=== PATIENT | female | born 1935 | race Caucasian/White ===

== ENCOUNTER → 2016-07-13 | Outpatient (CLI) | payer OTHER, BC ==
[~2016-07-13] VITALS: Ht 157.5 cm; Wt 61.2 kg
[~2016-07-13] MED LIST: ACIPHEX 20 MG T20 MG PO; ALEVE220 MG; ALEVE220 MG PO; AMITRIPTYLINE H10 M1 PO; AMITRIPTYLINE H10 M3 PO; ANALGESIC325 MG PO; APAP500 PO; ARNICA120 ML TP; BENICAR HCT 401 EAC1 PO; BENICAR20 MG PO; BENICAR40 MG PO; CAL-MAG-ZINC T1 EACH PO; CELEXA10 MG PO; EQL CALCIUM IN1 EACH PO; FENOFIBRATE160 MG PO; HYDROCHLOROTH12.5 MG PO; HYDROCODON-ACE1 EAC5 PO; HYDROCODON-ACE1 EAC7 PO; HYDROCODONE-AP1 EAC6 PO; LASIX 20 MG TAB20 MG PO; LASIX 40 MG TAB40 M2 PO; LEXAPRO 10 MG T10 M2 PO; LINZESS145 MCG PO; LORTAB 10-3251 EACH PO; MAGOX 400400 MG PO; MELOXICAM7.5 MG PO; MOVANTIK25 MG PO; NISOLDIPINE17 MG PO; PLAVIX 75 MG TA75 MG PO; PREMARIN0.625 MG PO; PRILOSEC 20 MG20 MG PO; PROTONIX40 M1 PO; PROTONIX40 M2 PO; SULAR PO; TOPROL XL100 MG PO; TRICOR145 MG PO; ZANTAC 150MG T150 M1 PO; ZOCOR 20 MG TAB20 M1 PO; ZOCOR20 MG PO
--- NOTE | ~2016-07-13 | HPC ---
[facility] [address] [place] [address] PAIN MANAGEMENT CONSULTATION Name: OLIVIA PARKINSON Room #: REG VICKEYJavier Trujillo#: [id number] Admission: 07/13/16 Attend Phys: Jose Solitario MD Discharge: Date of : 34 Report #: [id number] THIS REPORT FOR: //name// CC: Stef Solitario DATE OF SERVICE: 07/13/2016 REASON FOR VISIT: Followup visit for bilateral hip pain. HISTORY OF PRESENT ILLNESS: I am seeing the patient today in followup for medication management. Pleased to report that she is doing exceptionally well following her hip replacement. Dr. Waggoner has now replaced both of her hips and she has had really good outcomes. She reports that her pain scores are 0 in her hip. She still has some chronic arthritic pain in her left knee and in her low back for which she continues to take medication. Her daily dose is hydrocodone is 2-3 tablets. We have encouraged her to use the lowest effective dose. I am giving her 10 mg tablets. She should break some in half if she does need a full dose. She is on maximum daily dose of 25 morphine milligram equivalents a day. She denies significant side effects. PHYSICAL EXAMINATION: She is upbeat and positive, very enthusiastic about the fact that her surgery has gone so well. Her blood pressure of 169/71, heart rate 71, respirations 14, BMI 24.7. She is walking with a walker, but is able to move easily from sitting to standing position and has a good stable gait. She has minimal tenderness around her hip. She has some pain across her low back and into her left knee. IMPRESSION: 1. Chronic back pain related to spondylosis. 2. Osteoarthritis, left hip, has now much improved following replacement, but she still has some knee pain bilaterally. 3. Coronary artery disease. 4. Hypertension. 5. Management of high risk medications under terms of an opioid agreement. PLAN: Medications were renewed for her for 3 months. Importance of safeguarding medication was stressed to her today and we reviewed the CDC guidelines. I plan to see her back in 3 months. By: [id number] Jose Solitario MD /nt
== END | disposition home or self-care (01) ==
LOC: PAIN 06:53
DX: M47.896 Other spondylosis, lumbar region (principal); G89.29 Other chronic pain; M17.0 Bilateral primary osteoarthritis of knee; M25.561 Pain in right knee; M25.562 Pain in left knee; I10 Essential (primary) hypertension; F11.20 Opioid dependence, uncomplicated; I25.10 Atherosclerotic heart disease of native coronary artery without angina pectoris; Z87.891 Personal history of nicotine dependence; Z96.643 Presence of artificial hip joint, bilateral

== ENCOUNTER → 2016-10-05 | Outpatient (CLI) | payer OTHER, BC ==
[~2016-10-05] VITALS: Ht 157.5 cm; Wt 60.3 kg
--- NOTE | ~2016-10-05 | HPC ---
[facility] [address] [place] [address] PAIN MANAGEMENT CONSULTATION Name: OLIVIA PARKINSON Room #: REG LACHELLE Cassandra#: [id number] Admission: 10/05/16 Attend Phys: Jose Solitario MD Discharge: Date of : 34 Report #: [id number] THIS REPORT FOR: //name// CC: Stef Solitario DATE OF SERVICE: 10/05/2016 Followup visit for chronic low back pain with radiculopathy. The patient returns to pain clinic today for an epidural injection. She is now 7 days off her Plavix. She had previous injections with good response back in November. Pain is now returning to the point where she would like to receive an injection. Pain is in her low back, radiates through her left hip and down into her left leg. She describes it as a constant, burning soreness. Pain intensity is a 5/10 and constant. She gets some relief with sitting and repositioning. MEDICATIONS: Reconciled. She uses hydrocodone for intractable pain and Movantik for the side effect of constipation. She also uses tincture of arnica, magnesium, citalopram, Lasix, simvastatin, Linzess, pantoprazole, metoprolol, estrogens and again, her Plavix was discontinued for 7 days for the shot. PAST MEDICAL HISTORY: Remarkable for previous femoral endarterectomy. She has essential tremor. She has had stents in her legs and has a history of gastroesophageal reflux disease. She had myocardial infarction in 2000 and stents placed in 2000 and 2001. PHYSICAL EXAMINATION: Pleasant, alert and oriented, slight tremor is noted. Blood pressure 127/53, heart rate 75. She walks with mild antalgic feature. She has pain across her low back and limited range of motion. Positive straight leg raising on the right and left is noted, worse on the left, radiating down the L5-S1 distribution. X-rays from the past have demonstrated spinal stenosis at L4-L5 of a moderate degree with left lateral recess narrowing, left paramedian origin at the L5 nerve root. IMPRESSION: Lumbar radiculopathy, L4-L5; stenosis with involvement of the L5 nerve root. PROCEDURE: L4-L5 translaminar epidural injection to the left of midline. The patient was taken to fluoroscopic suite, placed prone, skin prepped with ChloraPrep. Skin anesthetized over the L4-L5 interspace. A 20-gauge Tuohy epidural needle advanced in the epidural space with loss of resistance. No blood or CSF was aspirated. 1 mL of Omnipaque injected and good spread of dye [address] [address] PAIN MANAGEMENT CONSULTATION Name: OLIVIA PARKINSON Room #: REG [facility] Cassandra#: [id number] Admission: 10/05/16 Attend Phys: Jose Solitario MD Discharge: Date of : 34 Report #: [id number] observed in the epidural space. This was followed then by 3 mL of 0.5% lidocaine mixed with 80 mg triamcinolone. She tolerated the procedure well and was observed for 45 minutes and discharged. Follow up as needed. <ELECTRONICALLY SIGNED> By: Jose Solitario MD 10/05/16 1714 1441 1640 Jose Solitario MD /nt
[2016-10-05 14:08] VITALS: BP 127/53
== END ==
LOC: PAIN 07:09
DX: M54.16 Radiculopathy, lumbar region (principal); M48.06 Spinal stenosis, lumbar region; I10 Essential (primary) hypertension; M19.90 Unspecified osteoarthritis, unspecified site; Z87.891 Personal history of nicotine dependence; F10.21 Alcohol dependence, in remission; I25.10 Atherosclerotic heart disease of native coronary artery without angina pectoris; I24.9 Acute ischemic heart disease, unspecified; M16.12 Unilateral primary osteoarthritis, left hip; Z88.8 Allergy status to other drugs, medicaments and biological substances

== ENCOUNTER 2016-11-09 14:27 | Emergency (ER) | payer OTHER, BC ==
[~2016-11-09] VITALS: Ht 157.5 cm; Wt 58.5 kg
[~2016-11-09 14:27] MED LIST changes: -KEFLEX500 MG PO
[2016-11-09 15:12] LABS: ABSOLUTE NEUTROPHILS 5.3 thou/uL (1.4-8.2); BASOPHILS 0.5 % (0.0-2.0); EOSINOPHILS 1.1 % (0.0-3.0); HEMATOCRIT 37.2 % (37.0-47.0); HEMOGLOBIN 12.8 gm/dL (12.0-15.0); LYMPHOCYTES 25.8 % (24.0-44.0); MCH 33.2 pg (26.0-34.0); MCHC 34.5 g/dL (28.0-37.0); MCV 96.3 fL (80.0-100.0); MONOCYTES 8.6 % (1.0-8.0); PLATELET COUNT 285 thou/uL (150-400); RBC 3.86 mil/uL (4.20-5.00); RDW 14.3 % (10.5-14.5); WBC 8.3 thou/uL (4.0-11.0)
[2016-11-09 15:13] LABS: MANUAL DIFF NO
[2016-11-09 15:19] LABS: CREATININE 0.9 mg/dL (0.6-1.0)
[2016-11-09] MEDS ORDERED: KEFLEX500 MG PO (17:40)
[2016-11-09 18:07] VITALS: BP 174/80
== END 2016-11-09 18:26 | disposition home or self-care (01) ==
LOC: ER 14:27
PROVIDERS: Nurse Practitioner
DX: S01.81XA Laceration without foreign body of other part of head, initial encounter (principal); S16.1XXA Strain of muscle, fascia and tendon at neck level, initial encounter; S09.90XA Unspecified injury of head, initial encounter; M25.511 Pain in right shoulder; I10 Essential (primary) hypertension; E78.5 Hyperlipidemia, unspecified; K21.9 Gastro-esophageal reflux disease without esophagitis; J45.909 Unspecified asthma, uncomplicated; F10.99 Alcohol use, unspecified with unspecified alcohol-induced disorder; Z95.5 Presence of coronary angioplasty implant and graft; Z90.711 Acquired absence of uterus with remaining cervical stump; Z86.79 Personal history of other diseases of the circulatory system; Z88.1 Allergy status to other antibiotic agents; Z88.6 Allergy status to analgesic agent; Z87.891 Personal history of nicotine dependence; W18.39XA Other fall on same level, initial encounter; Y93.89 Activity, other specified; Y92.090 Kitchen in other non-institutional residence as the place of occurrence of the external cause; Y99.8 Other external cause status

== ENCOUNTER → 2016-11-09 | Outpatient (CLI) | payer OTHER, BC ==
[~2016-11-09] MED LIST changes: +KEFLEX500 MG PO
== END ==
LOC: HYPER 07:06
DX: S81.801A Unspecified open wound, right lower leg, initial encounter (principal); I10 Essential (primary) hypertension; K21.9 Gastro-esophageal reflux disease without esophagitis; F32.9 Major depressive disorder, single episode, unspecified; I73.9 Peripheral vascular disease, unspecified; Z87.891 Personal history of nicotine dependence; Z72.89 Other problems related to lifestyle; X58.XXXA Exposure to other specified factors, initial encounter; Y93.89 Activity, other specified; Y92.89 Other specified places as the place of occurrence of the external cause; Y99.8 Other external cause status

== ENCOUNTER → 2016-11-23 | Outpatient (CLI) | payer OTHER, BC ==
[~2016-11-23] MED LIST changes: +KEFLEX500 MG PO
== END ==
LOC: HYPER 07:24
DX: S81.801A Unspecified open wound, right lower leg, initial encounter (principal); I10 Essential (primary) hypertension; Z96.643 Presence of artificial hip joint, bilateral; Z87.891 Personal history of nicotine dependence; Z72.89 Other problems related to lifestyle; X58.XXXA Exposure to other specified factors, initial encounter; Y93.89 Activity, other specified; Y92.89 Other specified places as the place of occurrence of the external cause; Y99.8 Other external cause status

== ENCOUNTER → 2016-12-21 | Outpatient (CLI) | payer OTHER, BC ==
[~2016-12-21] VITALS: Ht 157.5 cm; Wt 59.4 kg
--- NOTE | ~2016-12-21 | HPC ---
[facility] [address] [place] [address] PAIN MANAGEMENT CONSULTATION Name: OLIVIA PARKINSON Room #: REG VICKEYJavier Santoro.#: [id number] Admission: 12/21/16 Attend Phys: Jose Solitario MD Discharge: Date of : 34 Report #: [id number] THIS REPORT FOR: //name// CC: DEDRICK Solitario DATE OF SERVICE: 12/21/2016 Followup visit for lumbar radiculopathy. The patient returns to pain clinic today for another epidural injection. I am pleased to report that she is an excellent responder to these injections. Each time she has received an injection, she has reported nearly 70-80% pain relief and the duration of response has also been excellent in the range of 2 months or greater. Some injections have lasted longer. After the injection, she is able to ambulate more effectively. She has less pain in her back and into her left leg. She has radiculopathy. The last injection in September went well; however, about 2 weeks after her injection, her leg was heavily graft due to an open wound, which occurred when she hit her leg. She is on a blood thinner. She caught her foot while walking, trip and fell flat on her face causing significant bruising and swelling around her nose and eyes. This has almost entirely resolved. Fortunately, she fractured no boned and has no pain in her upper body. Over the last week or two, the pain has started return in her back and leg and she is here today off Plavix for 7 days in anticipation of another injection. MEDICATIONS: Plavix, hydrocodone p.r.n., Movantik, ____, citalopram, simvastatin, Lasix, amitriptyline, Linzess, Protonix, metoprolol, estrogens and ____. ALLERGIES: SULFA, TRAMADOL. PAST MEDICAL HISTORY: Remarkable for coronary artery disease with stents, femoral endarterectomy in 2012, essential tremor, hypertension, dyslipidemia, spinal stenosis, COPD, gastroesophageal reflux disease. PHYSICAL EXAMINATION: GENERAL: She is a [place], pleasant, jovial 81-year-old today. VITAL SIGNS: Blood pressure 161/71, heart rate 70, O2 sat is 97%. MUSCULOSKELETAL: She is able to move from sitting to standing position independently. She has tenderness across her low back and positive straight leg raising on the left following an L4-L5 distribution. She has some bruising in her leg. The wound that was on her right leg has completely healed. She has generalized weakness [place] [address] PAIN MANAGEMENT CONSULTATION Name: OLIVIA PARKINSON Room #: REG LACHELLE Trujillo#: [id number] Admission: 12/21/16 Attend Phys: Jose Solitario MD Discharge: Date of : 34 Report #: [id number] IMPRESSION: Low back pain with radiculopathy related to spinal stenosis, L4-L5. RECOMMENDATIONS: Repeat epidural steroid injection under fluoroscopic guidance. PROCEDURE: She was taken to the fluoroscopic suite, placed prone, skin prepped with ChloraPrep, skin anesthetized over the L4-L5 interspace. A 20-gauge Tuohy epidural needle advanced in the epidural space with loss of resistance technique. There was no blood nor CSF aspirated. 1 mL of Omnipaque was injected with excellent spread of dye observed in the epidural space. This was followed by 3 mL of 0.5% lidocaine mixed with 80 mg of triamcinolone. She tolerated the procedure well. She was observed for 45 minutes and discharged. Followup visit planned in the pain clinic on an as needed basis. We do not perform series of injections for this condition. By: 1129 [id number] Jose Solitario MD /nt
[2016-12-21 10:46] VITALS: BP 161/71
== END | disposition home or self-care (01) ==
LOC: PAIN 06:57
DX: M48.06 Spinal stenosis, lumbar region (principal); M54.16 Radiculopathy, lumbar region; G89.29 Other chronic pain; I10 Essential (primary) hypertension; J44.9 Chronic obstructive pulmonary disease, unspecified; I25.10 Atherosclerotic heart disease of native coronary artery without angina pectoris; E78.5 Hyperlipidemia, unspecified; K21.9 Gastro-esophageal reflux disease without esophagitis; Z88.8 Allergy status to other drugs, medicaments and biological substances; Z88.2 Allergy status to sulfonamides; Z98.890 Other specified postprocedural states; Z79.899 Other long term (current) drug therapy; Z95.5 Presence of coronary angioplasty implant and graft; Z87.891 Personal history of nicotine dependence

== ENCOUNTER → 2017-06-20 | Outpatient (CLI) | payer OTHER, BC ==
[~2017-06-20] VITALS: Ht 157.5 cm; Wt 60.9 kg
--- NOTE | ~2017-06-20 | HPC ---
[facility] [address] [place] [address] PAIN MANAGEMENT CONSULTATION Name: OLIVIA PARKINSON Room #: REG LACHELLE Giancarlo.#: [id number] Admission: 06/20/17 Attend Phys: Jose Solitario MD Discharge: Date of : 34 Report #: [id number] THIS REPORT FOR: //name// CC: Chente Moctezuma MD [facility] Stef Solitario DATE OF SERVICE: 06/20/2017 REASON FOR VISIT: Followup visit for management of chronic intractable pain. HISTORY OF PRESENT ILLNESS: The patient presents back to the pain clinic today with her . She is doing well, does not need another epidural injection at this time. She continues to use hydrocodone 10/325 three tablets a day. Some days, a little bit less. This has been very helpful for her pain. She has no significant side effects. She has been able to manage her pain intensity down to the level of 4 with the medication. I have agreed to renew the medication for today on 3-month basis. We reviewed our opioid agreement, the CDC guidelines and then opioid risk in the [place]. She understands that she has responsibilities with these medications. PQRS reveals that she has lower and upper extremity arthritis of the hips, knees and shoulders. Her BMI is 24.5. PHYSICAL EXAMINATION: VITAL SIGNS: Blood pressure 157/76, heart rate 70, respirations 16, O2 sat is 100 on room air. Pain intensity 4/10 today. MUSCULOSKELETAL: She is a fall risk with the use of a cane, required. She has not fallen in the last 3 months. She is on blood thinner and needs to be cautious. She has a history of hypertension, which is followed by her global marketing specialist and primary care physician. Risk assessment tool was performed and she has low risk for any addiction and her functional assessment tool is 41/70, suggesting that she has made good adjustments to her pain with the help of medication. She drinks alcohol on occasion 1-2 beverages a day in a social setting with her . IMPRESSION: 1. Chronic intractable low back pain with radiculopathy. 2. Management of high risk medication under terms of written opioid agreement. [facility] [address] [place] [address] PAIN MANAGEMENT CONSULTATION Name: OLIVIA PARKINSON Room #: REG VICKEYJavier Santoro.#: [id number] Admission: 06/20/17 Attend Phys: Jose Solitario MD Discharge: Date of : 34 Report #: [id number] PLAN: Medications renewed. Her responsibilities to safeguard medication discussed and I plan to see her back in the pain clinic in 3 months. <ELECTRONICALLY SIGNED> By: Jose Solitario MD 06/27/17 1640 1535 2136 Jose Solitario MD /nt
[2017-06-20 14:20] VITALS: BP 157/76
== END ==
LOC: PAIN 06:57
DX: G89.29 Other chronic pain (principal); M54.16 Radiculopathy, lumbar region; F11.90 Opioid use, unspecified, uncomplicated

== ENCOUNTER → 2017-11-19 | Outpatient (CLI) | payer OTHER, BC ==
[~2017-11-19] VITALS: Ht 157.5 cm; Wt 60.9 kg
--- NOTE | ~2017-11-19 | HPC ---
[facility] [address] [place] [address] PAIN MANAGEMENT CONSULTATION Name: OLIVIA PARKINSON Room #: REG LACHELLE Yvan.#: [id number] Admission: 11/19/17 Attend Phys: Jose Solitario MD Discharge: Date of : 34 Report #: [id number] THIS REPORT FOR: //name// CC: Stef Solitario DATE OF SERVICE: 11/19/2017 Followup visit for chronic low back pain with radiculopathy. The patient returns today with her for medication. She continues to do very well, taking 3 hydrocodone a day. She denies side effects. She is grateful for the relief that she gets and she is careful about safeguarding her medications. We have discussed our CDC guidelines. We have discussed her opioid agreement. We have discussed her responsibility in taking care of the medications. PQRS revealed a pleasant, alert and oriented woman. She has multiple bruises from her blood thinner. She is 5 feet 2 inches, 130 pounds, BMI 34.5. Blood pressure is 141/62, heart rate 71, respirations 16. Pain intensity is 6-7/10 with standing and walking. She is not a fall risk. She is on Plavix. History of hypertension. Opioid contract was agreed upon and signed most recently on 07/13/2016. She is at low risk for addiction and her functional assessment tool was a modest 41/70. She denies use of tobacco or alcohol. IMPRESSION: 1. Chronic back pain with radiculopathy. 2. Management of high risk medications under terms of written opioid agreement. PLAN: I renewed her medications and talked to her again about safeguarding medications cautiously. Her medication will be hydrocodone 10/325 taken 3 times a day on schedule. Followup visit planned as needed. <ELECTRONICALLY SIGNED> By: Jose Solitario MD 11/21/17 1622 1230 1252 Jose Solitario MD /nt
[2017-11-19 09:21] VITALS: BP 141/62
== END ==
LOC: PAIN 06:23
DX: M54.16 Radiculopathy, lumbar region (principal); Z79.891 Long term (current) use of opiate analgesic

== ENCOUNTER → 2018-03-11 | Outpatient (CLI) | payer OTHER, BC ==
[~2018-03-11] VITALS: Ht 157.5 cm; Wt 60.8 kg
--- NOTE | ~2018-03-11 | HPC ---
[facility] [address] [place] [address] PAIN MANAGEMENT CONSULTATION Name: OLIVIA PARKINSON Room #: REG Javier Trujillo#: [id number] Admission: 03/11/18 Attend Phys: Ashley Cody Discharge: Date of : 34 Report #: [id number] THIS REPORT FOR: //name// CC: Ashley Lutz MD DATE OF SERVICE: 03/11/2018 CHIEF COMPLAINT: Followup visit today for chronic low back pain with radiculopathy. HISTORY OF PRESENT ILLNESS: The patient returns today for a refill of her medications. She tells me that her pain score is 3/10, which is pretty average. She said that her pain is mostly in her legs. States she has some numbness in her left leg, but does have pain in both legs, worse with activity, walking and bending. The medication does help her significantly. She has a slight cough today and her filled 31 bags of leaves about 2 weeks ago and has had a cough ever since. The patient thinks she just inhaled some dust. The patient does tell me that she had her flu shot at that time, but the patient tells me also that she was able to do that without any significant pain. They did not do that over 1 day, it was over several days and tells me she tries to keep as active as possible. She tells me that her constipation is controlled with Linzess and was controlled with Movantik, but the insurance company is not willing to cover Movantik any longer, so she is using Linzess, but still finds it helpful. She does not have any daytime sleepiness. She does recite her rosary every afternoon and then takes a scheduled nap daily. ALLERGIES: BACTRIM AND TRAMADOL. CURRENT MEDICATIONS: Hydrocodone 10/325 one tablet 2-3 times a day, Mag-Ox 40 mg twice daily, Celexa 10 mg daily, simvastatin 20 mg daily, Lasix 40 mg as needed, Elavil 10 mg daily, Linzess 145 mg at bedtime, Protonix 40 mg daily, Toprol 100 mg daily, Premarin 0.625 daily and Plavix 75 mg at bedtime. The patient's PQRS today: 1. History of osteoarthritis in her right upper and lower extremities. Denies rheumatoid arthritis. 2. The patient is 5 feet 2 inches, weight 134, BMI is 24.5. 3. Vital signs: Blood pressure 158/89, pulse is 87, respirations 16, oxygen sat is 97%. 4. Pain score of 3/10. 5. Denies dizziness. Has not fallen in the last 3 months and does not need help walking or understanding. 6. The patient is on blood thinner. 7. The patient has a history of hypertension. [facility] [address] [place] [address] PAIN MANAGEMENT CONSULTATION Name: OLIVIA PARKINSON Room #: REG CL Cassandra#: [id number] Admission: 03/11/18 Attend Phys: Ashley Cody Discharge: Date of : 34 Report #: [id number] 8. Opioid therapy greater than 6 weeks, and does have opioid signed contract on the chart. 9. She has a low risk assessment and her functional assessment is 41/70. 10. The patient does not use recreational drug use. He is a former smoker and occasionally drinks alcohol. [place] drug monitoring prescriptions were not found. We will try again with the patient's nickname, Natasha. The patient tells me she does safeguard her medications and does use only one pharmacy. PHYSICAL EXAMINATION: This is alert and orientated 82-year-old, appears her stated age, walks with an antalgic gait. Occasionally uses a cane, not one present today, has not fallen. Lower extremities, numbness in her left leg, but strength appear to be equal bilaterally about 4/5 is judged in all muscle groups. IMPRESSION: 1. Chronic back pain with radiculopathy. 2. High risk medicines under the terms of written opioid contract. 3. Hypertension. We reviewed the fact that opiate medications are being used to provide analgesia adequate to support activities of daily living, not attempting to achieve a specific pain score on the 0-10 Visual Analog Scale. The current opiate medications are providing sufficient analgesia to allow the patient to participate in activities of daily living. The patient is not exhibiting any aberrant behavior suggestive of drug diversion. The patient is not having any adverse reactions to medications. The patient is not suffering from daytime somnolence or mental acuity changes. The patient is managing opiate-induced constipation with appropriate [id number] agents and dietary considerations. The patient was counseled on concern for caution with operating a motor vehicle while using opiate medications. A physical exam was performed and the patient's functional status was evaluated. All patients with back pain were advised against the bed rest greater than 4 days and were advised to return to normal activities. Pain score assessment was noted and the treatment plan was reviewed with the patient. All current medications, both prescribed and OTC were reviewed and reconciled on the electronic medical record. Tobacco screening was accomplished and smoking cessation was advised when indicated. BMI was noted and diet/exercise modification was recommended for all patients following outside normal parameters. I reviewed with the patient today their responsibilities to safeguard prescription medications, reviewed their responsibility to utilize medications only as prescribed by the physician. They are to seek and receive pain [facility] [address] [place] [address] PAIN MANAGEMENT CONSULTATION Name: OLIVIA PARKINSON Room #: REG LACHELLE Trujillo#: [id number] Admission: 03/11/18 Attend Phys: Ashley SHANNA Cody Discharge: Date of : 34 Report #: [id number] medications only from 1 physician group ( [facility]). They are to use 1 pharmacy and keep the clinic informed if they change pharmacies. Their responsibilities include making followup visits in a timely fashion and to avoid abrupt discontinuation of medication usage. Their responsibilities further include bringing their medications (bottles from the pharmacy with residual pills) to the visit for possible confirmation of pill counts and the patient understands it is their responsibility to submit to random drug screens to ensure both that the medications prescribed are present, and that no other controlled substances are present. All prescriptions provided today were generated electronically. PLAN: 1. We renewed her medications of hydrocodone 10/325. The patient takes 2-3 times a day, #90 was given with a refill for a week and 8 weeks. 2. The patient reminded to safeguard her medicines. 3. The patient tells me that she did get a flu shot, which I was going to encourage her to get one, but she has had it about 11 days ago. 4. Discussion on constipation and Linzess has been helpful as well as diet. 5. The patient will follow up in 3 months' time for her medications, if not sooner for an epidural with Dr. Jose Solitario. <ELECTRONICALLY SIGNED> By: Ashley Cody 03/12/18 1449 1019 0016 Ashley Cody /nt
[2018-03-11 09:52] VITALS: BP 158/89
== END ==
LOC: PAIN 06:48
DX: M54.16 Radiculopathy, lumbar region (principal); G89.29 Other chronic pain; I10 Essential (primary) hypertension; Z79.891 Long term (current) use of opiate analgesic; Z79.899 Other long term (current) drug therapy

== ENCOUNTER 2018-07-05 05:34 | Inpatient (IN) | payer OTHER, BC ==
[2018-06-24 11:09] LABS: URINE BILIRUBIN NEGATIVE (Negative); URINE BLOOD NEGATIVE (Negative); URINE CLARITY CLEAR; URINE COLOR YELLOW; URINE GLUCOSE-RANDOM* NEGATIVE (Negative); URINE KETONES NEGATIVE (Negative); URINE LEUKOCYTES-REFLEX TRACE (Negative); URINE NITRITE-REFLEX NEGATIVE (Negative); URINE PROTEIN (DIPSTICK) NEGATIVE (Negative); URINE UROBILINOGEN 0.2 E.U./dl (0.2-1.0)
[2018-06-24 11:14] LABS: ABSOLUTE NEUTROPHILS 2.1 thou/uL (1.4-8.2); BASOPHILS 0.9 % (0.0-2.0); EOSINOPHILS 6.7 % (0.0-3.0); HEMATOCRIT 34.9 % (37.0-47.0); HEMOGLOBIN 11.9 gm/dL (12.0-15.0); LYMPHOCYTES 35.9 % (24.0-44.0); MCHC 34.2 g/dL (28.0-37.0); MCV 99.4 fL (80.0-100.0); MONOCYTES 4.4 % (1.0-8.0); PLATELET COUNT 199 thou/uL (150-400); POLYS 52.1 % (36.0-66.0); RBC 3.51 mil/uL (4.20-5.00); RDW 13.2 % (10.5-14.5)
[2018-06-24 11:23] LABS: APTT 25.7 Seconds (24.5-32.8)
[2018-06-24 11:32] LABS: ALBUMIN 3.5 g/dL (3.4-5.0); CALCIUM 8.5 mg/dL (8.5-10.1); CREATININE 0.8 mg/dL (0.6-1.0); POTASSIUM 4.4 mmol/L (3.5-5.1); TOTAL BILIRUBIN 0.3 mg/dL (<0.1-1.0)
--- NOTE | 2018-06-24 15:57 | EKG ---
[place] [address] [facility] [place] [address] ELECTROCARDIOGRAM REPORT Name: COTYOLIVIA MCKINLEY Mojgan Room #: [facility] ..#: [id number] ������������������ Admission: ������������������ Attend Phys: Zak Guillaume MD Discharge: ������������������ Date of : 34 Report #: [id number] ����������������������������������������������������������������� [id number] THIS REPORT FOR: //name// [facility] Test Date: 2018-06-24 Test Time: 10:48:37 Pat Name: OLIVIA PARKINSON Department: Room: Gender: F Mobile Application Architect: Mojgan SHERWOOD : 1935 Requested By: Zak Guillaume Order Number: [id number] : Laureano Bajwa Measurements Intervals [place] Rate: 65 P: 11 MD: 186 QRS: -7 QRSD: 93 T: 27 QT: 433 QTc: 451 Interpretive Statements Sinus rhythm Low voltage, extremity leads Compared to ECG 02/23/2016 03:20:22 No significant changes Electronically Signed On 06-24-2018 15:57:16 TEXTILE CONSERVATOR by Laureano Bajwa [email or web address] ��������������������������������������������� <ELECTRONICALLY SIGNED> ���������������������������������������� By: Laureano Bajwa MD ��������������������������������������������� 06/24/18 1557 1048 47 Laureano Bajwa MD /BRAD
[~2018-07-05] VITALS: Ht 157.5 cm; Wt 59.2 kg
[2018-07-05] VITALS (14 sets, daily range): BP systolic 103–154; BP diastolic 37–58
--- NOTE | ~2018-07-05 | O ---
[facility] [place] [address] OPERATIVE REPORT Name: OLIVIA PARKINSON Room #: 150-8 ADM IN M.R.#: [id number] Admission: 07/05/18 ������������������ Attend Phys: Zak Guillaume MD Discharge: ������������������ Date of : 34 Report #: [id number] THIS REPORT FOR: //name// CC: Zak Lutz DATE OF SERVICE: 07/05/2018 PREOPERATIVE DIAGNOSIS: Right femoral artery stenosis. POSTOPERATIVE DIAGNOSIS: Right femoral artery stenosis. OPERATION: Right femoral endarterectomy with patch closure. SURGEON: Zak Guillaume MD VP ORGANIZATIONAL DEVELOPMENT: CHRISTOPH Lees. ANESTHESIA: General. INDICATIONS: The patient is an 83-year-old with debilitating claudication. The patient has had multiple endovascular procedures, but there was a subtotal occlusion at the proximal superficial femoral artery, right at the profunda takeoff. The remainder of the femoral system on the right side looks angiographically satisfactory. FINDINGS AND TECHNIQUE: After general anesthesia was established, an oblique incision was made in the right groin to expose the common deep and superficial femoral arteries. 10,000 units of heparin were given. The femoral vessels were occluded. An arteriotomy was made. The endarterectomy was performed without creating a distal flap. Neointima was inspected and all loose debris was removed. Tacking sutures were placed at the transition zones into the profunda and into the superficial femoral arteries. When the endarterectomy was deemed satisfactory, the arteriotomy was closed with a thin walled pericardial patch and running Prolene. Prior to finishing the closure, the vessels were backbled and the artery was irrigated with heparinized saline. Flow was reestablished. Protamine was given to reverse the heparin. Hemostasis was ascertained. When hemostasis was satisfactory, the wound was closed in layers. [facility] [address] [facility] [place] [address] OPERATIVE REPORT Name: OLIVIA PARKINSON Room #: 150-8 ADM IN M.R.#: [id number] Admission: 07/05/18 ������������������ Attend Phys: Zak Guillaume MD Discharge: ������������������ Date of : 34 Report #: [id number] dressing was placed and the patient was taken to the recovery area in good condition. All counts were reported as correct. ��������������������������������������������� ���������������������������������������� By: ��������������������������������������������� [id number] /nt
[~2018-07-05 05:34] MED LIST changes: +BIOTIN1000 MCG PO; +LINZESS290 MCG PO; +NORCO 10-325 T1 EACH PO; +SLOW-MAG64 M1 PO; +STOOL SOFTENER100 M1 PO; +ZOCOR 10 MG TAB10 MG PO
[2018-07-05 11:40] LABS: HEMATOCRIT 33.2 % (37.0-47.0); HEMOGLOBIN 11.3 gm/dL (12.0-15.0); MCHC 34.1 g/dL (28.0-37.0); RBC 3.32 mil/uL (4.20-5.00); RDW 13.4 % (10.5-14.5); WBC 7.5 thou/uL (4.0-11.0)
[2018-07-05 11:54] LABS: CALCIUM 8.1 mg/dL (8.5-10.1); CREATININE 0.8 mg/dL (0.6-1.0); POTASSIUM 3.6 mmol/L (3.5-5.1)
--- NOTE | 2018-07-05 19:24 | NUR ---
PT ARRIVED FROM RECOVERY ROOM AT 1200. POST OP RIGHT FEM ENDARECTOMY. GOOD PULSE IN BILAT FEET. PT C/O LEFT FOOT FEELING COLDER THAN RIGHT FOOT NOW. PRN PAIN MEDS GIVEN. PT CAN BECOME ANXIOUS WHEN SHE TALKS TOO MUCH, AND HAS TROUBLE FORMING SENTENCES. TREMORS NOTED. PT WOULD LIKE TO GO HOME TOMORROW. FAMILY HOME FOR THE NIGHT. PLAN TO START HOME MEDS IN THE AM.
[2018-07-06] VITALS (26 sets, daily range): BP systolic 111–151; BP diastolic 42–104
[2018-07-06 04:38] LABS: HEMOGLOBIN 9.9 gm/dL (12.0-15.0); MCH 34.1 pg (26.0-34.0); MCHC 34.3 g/dL (28.0-37.0); MCV 99.6 fL (80.0-100.0); RBC 2.91 mil/uL (4.20-5.00); RDW 13.1 % (10.5-14.5); WBC 5.3 thou/uL (4.0-11.0)
[2018-07-06 04:48] LABS: CALCIUM 7.6 mg/dL (8.5-10.1); CREATININE 0.9 mg/dL (0.6-1.0); POTASSIUM 4.2 mmol/L (3.5-5.1)
--- NOTE | 2018-07-06 05:26 | NUR ---
ASSUMED CARE OF PT AT 1900. PT ALERT AND ORIENTED X4. SR ON THE MONITOR. ON LOW DOSE CARDENE THROUGH OUT THE NIGHT DUE TO PERIODS OF ELEVATED BP. PT TOLERATING WELL. VSS. PT INITIALLY C/O PAIN ON HER RIGHT GROIN R/T SURGERY. PO AND IV MEDS GIVEN WITH GOOD RESULT. PT TOLERATED WELL. GOOD UO. OCHOA CATHETER D/C AT 0400. PT TOLERATING PO FLUID AND DIET. WILL CONTINUE TO MONITOR. PT MAKING PROGRESS TOWARDS GOALS.
--- NOTE | 2018-07-06 17:23 | NUR ---
PT IS ALERT AND ORIENTED X4. ANXIOUS. PAIN MEDS GIVEN FOR DISCOMFORT. UP TO THE CHAIR THIS EVENING WITH ASSISTANCE. LUNGS ARE CLEAR ON ROOM AIR. SINUS RHYTHM ON THE DIVISIONAL HUMAN RESOURCES DIRECTOR. REGULAR DIET. NO ISSUES. UP TO COMMODE TO USE THE BATHROOM WITH ASSISTANCE. ABDOMEN IS SOFT. GOOD PULSES IN FEET BILATERAL. WILL CONTINUE TO ASSESS AND MONITOR PER NURSING AT THIS TIME.
[2018-07-07] VITALS (9 sets, daily range): BP systolic 137–178; BP diastolic 54–80
--- NOTE | 2018-07-07 05:24 | NUR ---
PATIENT IS ALERT AND ORIENTED. PENDING POSSIBLE DISCHARGE TODAY. PATIENTS PAIN IS CONTROLLED WITH ONE HYDROCODON. PATIENT IS ON ROOM AIR AT HOME BUT PATIENT WAS 87% ON ROOM AIR WHILE SLEEPING. PATIENT IS NOW ON 2L NC HS PRN. PATIENT IS UP TIME ONE ASSIST PATIENT CAN GET ANXIOUS. PATIENT HAS BEEN VOIDING PER BSC. PATIENTS MOBILITY HAS IMPROVED. PATIENT IS PROGRESSING TO GOALS. WCM. PATIENT IS PROGRESSING TO GOALS
--- NOTE | 2018-07-07 11:37 | NUR ---
PT IS GIVEN DISCHARGE INSTRUCTIONS VERBALIZES UNDERSTANDING. DR. BURKS SEEN PT PRIOR TO DISCHARGE. TAKEN OUT VIA WHEEL CHAIR. SPOUSE WITH PT AND DAUGHTER WITH PT FOR SUPPORT. NO ISSUES OR CONCERNS NOTED.
--- NOTE | 2018-07-08 17:07 | PATH ---
[facility] [address] [place] [address] PATHOLOGY RPT PROCEDURE Name: DENITA PARKINSON Mojgan Room #: 244-P [facility] IN M.R.#: [id number] ������������������ Admission: 07/05/18 ������������������ Date of : 34 Discharge: 07/07/18 Report #: [id number] Path Case #: [id number] [facility] Accession Number: [id number] . 01 Material submitted: . RIGHT FEMORAL PLAQUE . 01 Clinical history: . PVD . 02 Diagnosis: Right femoral plaque, endarterectomy: - Fragments of calcific sclerosis, compatible with plaque material. 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 (IUV/db; 07/08/2018) LBQ/07/08/2018 . 02 Electronically signed: . Simin Fuentes MD, Pathologist NPI- [id number] . 01 Gross description: . The specimen is received in formalin, labeled "Denita Parkinson, right femoral plaque", is a previously opened, cylindrical segment and its fragments measuring 2.4 x 1.5 x 0.8 cm in aggregate. The segment is filled with gill-white calcified material. Rear Admiral tissue is submitted in A1 after decalcification. ([facility]; 07/05/2018) SHS/SHS . 02 Pathologist provided ICD-10: I70.201 . 02 CPT . 081415, 971464 Specimen Comment: A courtesy copy of this report has been sent to Specimen Comment: [phone], . Specimen Comment: Report sent to and Performed at: [address], [place] [id number] MD Braulio Joshua MD Phone: [phone] Performed at: [address] [id number] MD Simin Fuentes MD Phone: [phone]
== END 2018-07-07 11:37 | disposition home or self-care (01) | DRG 254 ==
LOC: PRE 05:34 → TBA 05:34 → ICU 12:33 → PRE 14:17 → ICU 07-07 05:54
PROVIDERS: Physician Assistant; ADMIT Surgery Vascular Surgery
PROC: 04CK0ZZ Extirpation of Matter from Right Femoral Artery, Open Approach (ICD-10-PCS; principal; 2018-07-05)
PROC: 04UK0KZ Supplement Right Femoral Artery with Nonautologous Tissue Substitute, Open Approach (ICD-10-PCS; principal; 2018-07-05)
DX: I70.211 Atherosclerosis of native arteries of extremities with intermittent claudication, right leg (principal); Z96.642 Presence of left artificial hip joint; Z90.710 Acquired absence of both cervix and uterus; Z88.1 Allergy status to other antibiotic agents; Z88.2 Allergy status to sulfonamides; Z88.8 Allergy status to other drugs, medicaments and biological substances
CPT/HCPCS: 10203; 47375; 48888; 50010; 50101; 50386; 50455; 50953; 51751; 52279; 56524; 56526; 56528; 56531; 56534; 56668; 56760; 57092; 57093; 62110; 62900; 65020; 65040; 70005

== ENCOUNTER → 2018-07-17 | Outpatient (CLI) | payer OTHER, BC ==
[~2018-07-17] VITALS: Ht 157.5 cm; Wt 59.9 kg
[~2018-07-17] MED LIST changes: +NORCO 10-325 T1 EAC1 PO
[2018-07-17 10:22] VITALS: BP 163/88
--- NOTE | 2018-07-17 10:23 | NUR ---
Pain Clinic Assessment: 1. History of Osteoarthritis: Left Lower Extremity Left Upper Extremity Right Lower Extremity Right Upper Extremity History of Rheumatoid Arthritis: Not Applicable 2. Height: 5 ft. 2 in. 157.5 cm. Weight: 132.0 lb. oz. 59.875 kg. Patient's BMI: 24.1 3. Vital Signs: BP: 163/88 Pulse: 66 Resp: 15 Temp: 02 Sat: 100 ECG Mon: 4. Pain Intensity: 4 5. Fall Risk: Dizziness: N Needs help standing or walking: N Fallen in the last 3 months: N Fall risk comments: 6. Patient on Blood Thinner: Clopidogrel Bisulf(Plavix 7. History of Hypertension: Y 8. Opioid Therapy greater than 6 weeks: Y Opiate Contract Signed: 07/13/16 9. Risk Assessment Tool Provided: LOW RISK 0/3 10. Functional Assessment Tool: 41 11. Recreational Drug Use: Never Drug Type: Tobacco Use: Former Smoker Tobacco Type: Amount or Packs/day: How Many Years: Alcohol Use: Yes Frequency: Daily Quant:
--- NOTE | 2018-07-18 07:49 | HPC ---
[facility] [address] [place] [address] PAIN MANAGEMENT CONSULTATION Name: OLIVIA PARKINSON Room #: REG LACHELLE Truj[place]#: [id number] Admission: 07/17/18 ������������������ Attend Phys: Ashley Cody Discharge: ������������������ Date of : 34 Report #: [id number] THIS REPORT FOR: //name// CC: Ashley Lutz MD DATE OF SERVICE: 07/17/2018 CHIEF COMPLAINT: Chronic low back pain with radiculopathy. HISTORY OF PRESENT ILLNESS: The patient returns to the pain clinic today for refill of her medications. She tells me that she recently had a surgery about 2 weeks ago of the right femoral endarterectomy with patch closure. The patient tells me that her right leg along the inner aspect of her thigh has been burning and sharp at times. She believes that this will slowly get better. This was told to her by the surgeon that it will gradually get better it is still bothersome. She tells me she is taking 3 of her hydrocodone a day and finds it very helpful. She also has some complaints of back pain. Today, her pain score is 4/10, worse with walking, better with sitting and her medications. She did tell me that as she walked in here today from the parking lot, she did have to sit down to help relieve her pain. She would like a refill of her medications. She also tells me that she is having significant constipation. She is off the Linzess because it was causing some spasms and she is not able to get her Movantik anymore that was helpful in the past, but has not been helping as much as it used to. So, the patient has been taking Colace every day, but having significant constipation issues. ALLERGIES: BACTRIM, TRAMADOL. CURRENT LIST OF MEDICATIONS: Plavix 75 mg daily, hydrocodone 10/325, Zocor 10 mg at bedtime, stool softener b.i.d., Biotin 1000 mcg daily, magnesium b.i.d., Celexa 10 mg daily, Lasix 40 mg daily, amitriptyline 10 mg at bedtime, Protonix 40 mg daily, Toprol-XL 100 mg daily, nisoldipine 17 mg at bedtime and Premarin 0.625 mg at bedtime. PQRS: 1. She has osteoarthritis in her upper and lower extremities and denies rheumatoid arthritis. 2. The patient is 5 feet 2 inches, weight is 132, BMI is 24.1. 3. Vital signs: Blood pressure 163/88, pulse is 66, respirations 15, oxygen sat is 100. 4. Pain score 4/10. 5. Fall risk: Denies dizziness. Does not need help walking or standing. Has not fallen in the last 3 months. 6. The patient is on blood thinner on Plavix and does take medicines for [address] [address] PAIN MANAGEMENT CONSULTATION Name: OLIVIA PARKINSON Room #: REG [facility] Cassandra#: [id number] Admission: 07/17/18 ������������������ Attend Phys: Ashley Cody Discharge: ������������������ Date of : 34 Report #: [id number] hypertension. 7. Opiate therapy is greater than 6 weeks; therefore, an opioid signed contract is on the chart. 8. Risk assessment tool is low. Her functional assessment is 41/70. 9. Recreational drug use: She denies. She is a former smoker and occasionally drinks alcohol. We did check the prescription monitoring system. The patient is filling appropriately with her medications. She tells me that she does safeguard her medicines at all times. PHYSICAL EXAMINATION: GENERAL: This is an alert and orientated 83-year-old that appears her stated age. HEENT: Normocephalic, atraumatic. Extraocular eye muscles are intact. MUSCULOSKELETAL: The patient walks with a slightly antalgic gait. She complains of right leg burning in her anterior thigh today from her recent procedure as well as complaining of lower extremity pain when she is walking. Strength in her lower extremities bilaterally is judged to be 4/5 in all major muscle groups. The patient walks with a slightly antalgic gait and occasionally uses a cane though not using one today presently. IMPRESSION: 1. Chronic back pain with radiculopathy. 2. High risk medication under terms of written opioid agreement. 3. Opioid-induced constipation. 4. Hypertension. We reviewed the fact that opiate medications are being used to provide analgesia adequate to support activities of daily living, not attempting to achieve a specific pain score on the 0-10 Visual Analog Scale. The current opiate medications are providing sufficient analgesia to allow the patient to participate in activities of daily living. The patient is not exhibiting any aberrant behavior suggestive of drug diversion. The patient is not having any adverse reactions to medications. The patient is not suffering from daytime somnolence or mental acuity changes. The patient is managing opiate-induced constipation with appropriate [id number] agents and dietary considerations. The patient was counseled on concern for caution with operating a motor vehicle while using opiate medications. A physical exam was performed and the patient's functional status was evaluated. All patients with back pain were advised against the bed rest greater than 4 days and were advised to return to normal activities. Pain score assessment was noted and the treatment plan was reviewed with the patient. All current medications, both prescribed and OTC were reviewed and reconciled on the electronic medical record. Tobacco screening was accomplished and smoking cessation was advised when indicated. BMI was noted and diet/exercise modification was recommended for all patients following outside normal [facility] [address] [place] [address] PAIN MANAGEMENT CONSULTATION Name: OLIVIA PARKINSON Room #: REG [facility].#: [id number] Admission: 07/17/18 ������������������ Attend Phys: Ashley Cody Discharge: ������������������ Date of : 34 Report #: [id number] parameters. I reviewed with the patient today their responsibilities to safeguard prescription medications, reviewed their responsibility to utilize medications only as prescribed by the physician. They are to seek and receive pain medications only from 1 physician group ( [facility]). They are to use 1 pharmacy and keep the clinic informed if they change pharmacies. Their responsibilities include making followup visits in a timely fashion and to avoid abrupt discontinuation of medication usage. Their responsibilities further include bringing their medications (bottles from the pharmacy with residual pills) to the visit for possible confirmation of pill counts and the patient understands it is their responsibility to submit to random drug screens to ensure both that the medications prescribed are present, and that no other controlled substances are present. All prescriptions provided today were generated electronically. PLAN: 1. We discussed treatment options with the patient today. The patient tells me that she is having some burning pain associated with her surgery and it is located in her anterior right thigh. She believes this will get better over time. Dr. Vail did see the patient and reinforced this too. It has only been 2 weeks since her surgery. If it does not get better in the next couple of weeks, she will contact her surgeon about this ongoing burning pain. 2. The patient tells me she has been taking three pain pills a day and would like a refill. Scripts given for her hydrocodone 10/325, #90 for today and in 4-week and 8-week release. 3. The patient complains of severe constipation. She in the past has taken Linzess, but was having spasms related to that and unable to continue that medicine. She had taken Movantik in the past, but it is not as helpful in relieving her constipation anymore. She takes Colace on a daily basis. I questioned if she had taken MiraLax. The patient had not tried this medicine. I encouraged her to try that once a day every day and we have provided her with samples of Symproic tablets to try if the Movantik is not helpful. If the MiraLax is ineffective in controlling her opioid-induced constipation, then she can start the Symproic as well and we will call in a prescription for that medicine. The patient verbalizes understanding to help relieve her constipation. 4. The patient will follow up in 3 months' time for medication management. 5. The patient was seen with Dr. Vail who collaborated care today. ��������������������������������������������� <ELECTRONICALLY SIGNED> ���������������������������������������� By: Ashley Cody ��������������������������������������������� 07/18/18 0749 1102 20 Ashley Cody /rocco
== END ==
LOC: PAIN 07:08
DX: M54.16 Radiculopathy, lumbar region (principal); G89.29 Other chronic pain; I10 Essential (primary) hypertension; K59.03 Drug induced constipation; Z88.8 Allergy status to other drugs, medicaments and biological substances; Z79.899 Other long term (current) drug therapy

== ENCOUNTER → 2018-09-05 | Outpatient (CLI) | payer OTHER, BC ==
[~2018-09-05] VITALS: Ht 157.5 cm; Wt 59.4 kg
[~2018-09-05] MED LIST changes: +MIRALAX17 GM PO
--- NOTE | 2018-09-06 16:06 | PATH ---
[facility] [address] [place] [address] PATHOLOGY RPT PROCEDURE Name: DENITA PARKINSON Room #: REG [facility] Yvan.#: [id number] ������������������ Admission: 09/05/18 ������������������ Date of : 34 Discharge: Report #: [id number] Path Case #: [id number] [facility] Accession Number: [id number] . 01 Material submitted: . colon - POLYP AT 60CM . 01 Clinical history: . Pre-OP DX: Rectal bleeding Post-OP DX: Colon polyp, diverticulosis, hemorrhoids . 02 Diagnosis: Polyp, at 60 cm, endoscopic biopsy: - Tubular adenoma. - Negative for high grade dysplasia. (IUV/db; 09/06/2018) LBQ/09/06/2018 . 02 Electronically signed: . Simin Fuentes MD, Pathologist NPI- [id number] . 01 Gross description: . Received in formalin labeled "Denita Parkinson, polyp at 60 cm," are 4 segments of valero soft tissue measuring 1.1 x 1.0 x 0.2 cm in aggregate dimensions and ranging from 0.3 to 0.5 cm in maximum dimension. The specimen is submitted entirely in cassette A1. ([facility]; 09/05/2018) TOB/TOB . 02 Pathologist provided ICD-10: D12.6 . 02 CPT . 608324 Specimen Comment: A courtesy copy of this report has been sent to Specimen Comment: [phone], . Specimen Comment: Report sent to / DR TAFOYA Performed at: [address], [place] [id number] MD Braulio Joshua MD Phone: [phone] Performed at: [address] [id number] MD Simin Fuentes MD Phone: [phone]
--- NOTE | 2018-09-07 10:54 | P ---
[facility] [place] [address] PROCEDURE REPORT Name: OLIVIA PARKINSON [id number] Admission: 09/05/18 ������������������ Attend Phys: Zak Bunn MD Discharge: ������������������ Date of : 34 Report #: [id number] THIS REPORT FOR: //name// CC: Zak Lutz MD DATE OF SERVICE: 09/05/2018 OUTPATIENT FLEXIBLE SIGMOIDOSCOPY BRIEF HISTORY: The patient is an 83-year-old woman with rectal bleeding. This patient was advised in 2013 to have a colonoscopy for screening purposes; however, she declined to have a colonoscopy. She recently has had problems with rectal bleeding. She presents for flexible sigmoidoscopy for evaluation of rectal bleeding. Interestingly, she did tell me this morning that if we can go all the way to the cecum, she will be okay with that; however, she did not take a full colonoscopy prep. PREOPERATIVE DIAGNOSIS: Rectal bleeding. POSTOPERATIVE DIAGNOSES: 1. A 4-5 mm flat polyp at 60 cm. 2. Moderate sigmoid diverticulosis coli. 3. Small internal hemorrhoids. MEDICATIONS: Deep sedation with propofol per anesthesia. SPECIMEN: Polyp from 60 cm. ESTIMATED BLOOD LOSS: 3 mL. PROCEDURE: Colonoscopy to cecum and terminal ileum with snare polypectomy. FINDINGS: Prior to propofol sedation, the procedure of colonoscopy was discussed with the patient as well as potential risks and its complications. She indicates she understands and desires to proceed. DESCRIPTION OF PROCEDURE: With the patient in left lateral decubitus position, digital examination was completed, which revealed only small internal hemorrhoids. Subsequently, the Olympus video colonoscope was introduced in the rectum, advanced under direct vision to about the level of the splenic flexure. The prep was somewhat limited. There were pools of liquidy stool material. The prep was inadequate for us to advance further into the proximal colon. At that point, the scope was slowly withdrawn and careful circumferential views obtained. The prep was fair. The mucosa seen was within normal limits, normal [facility] [address] [place] [address] PROCEDURE REPORT Name: OLIVIA PARKINSON Mojgan [facility] [id number] Admission: 09/05/18 ������������������ Attend Phys: Zak Bunn MD Discharge: ������������������ Date of : 34 Report #: [id number] vascular pattern, normal light reflex. At 60 cm, a 5-6 mm sessile polypoid lesion was seen. It was removed by cold snare polypectomy and edges were cleaned up with biopsy forceps. Scope was further withdrawn and no additional neoplastic lesions were seen; however, there were pools of liquid material and complete views could not be obtained. The scope was withdrawn. Again, she was noted to have sigmoid diverticular disease. Scope was withdrawn in the rectum, no abnormalities were seen. The prep in the rectum was fairly good. Upon retroflexion, small hemorrhoids were seen. It was felt this is most likely side of her intermittent bright red rectal bleeding. Active bleeding was not seen today. Scope was withdrawn. The patient tolerated the procedure well. CONDITION OF THE PATIENT UPON DISCHARGE: Following procedure, the patient was drowsy and conversant. She will be discharged home when fully ambulatory. INSTRUCTIONS TO THE PATIENT AND FAMILY: Advised the patient to follow a high fiber diet due to her diverticular disease. She has had problems with constipation and notes that she typically sees bright red blood with passage of hard stools. This certainly may represent hemorrhoidal bleeding; however, she was found to have the polyp as described. This appears to be a small adenoma. The prep was inadequate for complete visualization of the colon. There were limitations of the prep with the sigmoidoscopy. We will discuss further with the patient. At age 83, it would be reasonable to complete a screening colonoscopy, especially now since a presumably neoplastic lesion has been found. Suggest she continue MiraLax for her chronic constipation. Also, suggest she consider a full colonoscopy at a later date. She will follow up with Dr. Stef Lutz. If she desires complete colonoscopy, she should contact our office for scheduling. ��������������������������������������������� <ELECTRONICALLY SIGNED> ���������������������������������������� By: Zak Bunn MD ��������������������������������������������� 09/07/18 1054 0914 [id number] Zak Bunn MD /nt
== END | disposition home or self-care (01) ==
LOC: GI 06:59
DX: D12.4 Benign neoplasm of descending colon (principal); K57.30 Diverticulosis of large intestine without perforation or abscess without bleeding; K64.8 Other hemorrhoids; K21.9 Gastro-esophageal reflux disease without esophagitis; I10 Essential (primary) hypertension; I25.10 Atherosclerotic heart disease of native coronary artery without angina pectoris; I25.2 Old myocardial infarction; I73.9 Peripheral vascular disease, unspecified; E78.5 Hyperlipidemia, unspecified; F41.9 Anxiety disorder, unspecified; Z95.5 Presence of coronary angioplasty implant and graft; Z87.891 Personal history of nicotine dependence; Z90.711 Acquired absence of uterus with remaining cervical stump; Z87.19 Personal history of other diseases of the digestive system; Z98.890 Other specified postprocedural states; Z79.899 Other long term (current) drug therapy; Z98.41 Cataract extraction status, right eye; Z98.42 Cataract extraction status, left eye; Z96.641 Presence of right artificial hip joint; Z88.2 Allergy status to sulfonamides; Z88.8 Allergy status to other drugs, medicaments and biological substances
CPT/HCPCS: 62110; 62900

== ENCOUNTER → 2018-11-28 | Outpatient (CLI) | payer OTHER, BC ==
[~2018-11-28] VITALS: Ht 157.5 cm; Wt 58.5 kg
[~2018-11-28] MED LIST changes: +LEVSIN0.125 MG PO
--- NOTE | 2018-11-28 11:20 | P ---
[facility] [place] [address] PROCEDURE REPORT Name: OLIVIA PARKINSON [id number] Admission: 11/28/18 ������������������ Attend Phys: Zak Bunn MD Discharge: ������������������ Date of : 34 Report #: [id number] THIS REPORT FOR: //name// CC: Zak Lutz MD OUTPATIENT COLONOSCOPY REPORT BRIEF HISTORY: The patient is an 83-year-old woman who recently had rectal bleeding. She did not want a colonoscopy and a flexible sigmoidoscopy was done. The source of bleeding was not found and the bleeding has resolved. However, she was found to have an adenoma. She was advised to have colonoscopy due to finding of an adenoma on a flexible sigmoidoscopy. PREOPERATIVE DIAGNOSIS: History of colon polyps. POSTOPERATIVE DIAGNOSES: 1. Multiple colon polyps. 2. Rectal polyp. 3. Moderate sigmoid diverticulosis coli. MEDICATIONS: Deep sedation with propofol per anesthesia. SPECIMENS: 1. Diminutive polyps x 2 proximal transverse colon. 2. Polyp at 60 cm. 3. Polyp at 40 cm. 4. Polyp rectum. ESTIMATED BLOOD LOSS: 3 mL. PROCEDURE: Colonoscopy to cecum and terminal ileum with snare polypectomy and biopsy. FINDINGS: Prior to propofol sedation, procedure of colonoscopy discussed with the patient as well as potential risks and its complications. She indicates she understands and desires to proceed. DESCRIPTION OF PROCEDURE: With the patient in left lateral decubitus position, digital examination was completed, which revealed no abnormalities. Subsequently, the [employer] video colonoscope was introduced in the rectum, advanced under direct vision to the cecum. Done with minimal difficulty. The cecum was identified by the ileocecal valve and the appendiceal orifice. I was able to visualize the distal segment of the terminal ileum, which was inspected and noted to be unremarkable. At that point, the scope was slowly withdrawn and careful circumferential views were obtained. Upon slow withdrawal of the scope, [facility] [address] [place] [address] PROCEDURE REPORT Name: OLIVIA PARKINSON Room #: REG [facility].#: [id number] Admission: 11/28/18 ������������������ Attend Phys: Zak Bunn MD Discharge: ������������������ Date of : 34 Report #: [id number] the prep was good. The mucosa was within normal limits, normal vascular pattern, normal light reflex. As we withdrew the scope, 2 diminutive polyps were seen at the level of the hepatic flexure, removed with biopsy forceps. Upon further withdrawal of the scope, she was found to have a flat polyp about 5 x 5 mm in the descending colon at 60 cm. It was removed by cold snare polypectomy. Another diminutive polyp was found and removed with biopsy forceps from the sigmoid colon at 40 cm. In addition, she was noted to have moderately severe diverticular disease without endoscopic evidence of diverticulitis. Scope was withdrawn in the rectum and another diminutive adenomatous-appearing polyp was seen and removed with biopsy forceps. Scope was further withdrawn and no additional abnormalities were seen. Upon retroflexion, no abnormalities were seen. Scope was withdrawn. The patient tolerated the procedure well. CONDITION OF THE PATIENT UPON DISCHARGE: Following procedure, the patient drowsy, aroused, conversant and will be discharged home when fully ambulatory. INSTRUCTIONS TO THE PATIENT AND FAMILY AT THE TIME OF DISCHARGE: Multiple polyps identified and removed as described above. We will follow up on the path. However, at this point in life, there is not likely to be significant benefit from continued routine colonoscopy. However, should she develop specific problems, colonoscopy could be considered at that time. In addition, the patient has had some trouble with constipation. She has been on hydrocodone chronically. In recent weeks, she had problems with diarrhea. However, she tells me today, the diarrhea has resolved, and she is not having issues with constipation. She should use MiraLax on an as needed basis if she should develop further problems with constipation. There is no evidence of obstruction on today's exam. ��������������������������������������������� <ELECTRONICALLY SIGNED> ���������������������������������������� By: Zak Bunn MD ��������������������������������������������� 11/28/18 1120 [id number] 0959 Zak Bunn MD /nt
--- NOTE | 2018-11-29 14:06 | PATH ---
[facility] [place] [address] PATHOLOGY RPT PROCEDURE Name: DENITA PARKINSON Room #: REG [facility]..#: [id number] ������������������ Admission: 11/28/18 ������������������ Date of : 34 Discharge: Report #: [id number] Path Case #: [id number] Accession Number: [id number] . 01 Material submitted: . PART A: colon - POLYP X2 AT PROX TRANSVERSE. Modifiers: proximal, transverse PART B: colon - POLYP AT 60CM PART C: colon - POLYP AT 40CM PART D: rectum - RECTAL POLYP . 01 Clinical history: . Pre-OP DX: Hx of abdominal pain Post-OP DX: Colon polyps, diverticulosis . 02 Diagnosis: A. Polyp x2, at proximal transverse, endoscopic biopsy: - Multiple fragments with tubular adenoma. - Negative for high grade dysplasia. . B. Polyp, 60 cm, endoscopic biopsy: - Tubular adenoma. - Negative for high grade dysplasia. . C. Polyp, at 40 cm, endoscopic biopsy: - Tubular adenoma. - Negative for high grade dysplasia. . D. Polyp, rectum, endoscopic biopsy: - Hyperplastic polyp. - Negative for dysplasia. . (IUV:mml; 11/29/2018) QLM/11/29/2018 . 02 Electronically signed: . Simin Fuentes MD, Pathologist NPI- [id number] . 01 Gross description: . A. Received in formalin labeled "Denita Parkinson, BX of polyps at proximal transverse," and additionally labeled on the requisition as "polyp, x2," are 6 segments of valero soft tissue measuring 1.3 x 1.1 x 0.2 cm in aggregate dimensions and ranging from 0.1 to 0.3 cm in maximum dimension. The specimen is submitted entirely in cassette A1. . B. Received in formalin labeled "Denita Parkinson, polyp at 60 cm," [place] [address] PATHOLOGY RPT PROCEDURE Name: TESHADENITA L Room #: REG [facility]#: [id number] ������������������ Admission: 11/28/18 ������������������ Date of : 34 Discharge: Report #: [id number] Path Case #: [id number] 0.8 x 0.4 x 0.4 cm polypoid piece of valero soft tissue. The margin is inked and the tissue is sectioned perpendicular to the margin and submitted entirely in cassette B1. . C. Received in formalin labeled "Denita Parkinson, BX of polyp at 40 cm," are 3 segments of valero soft tissue measuring 1.0 x 0.4 x 0.2 x 0.1 cm in aggregate dimensions and ranging from 0.2 to 0.4 cm in maximum dimension. The specimen is submitted entirely in cassette C1. . D. Received in formalin labeled "Denita Parkinson, BX rectal polyp," is a single segment of valero soft tissue measuring 0.4 cm in maximum dimension. The specimen is entirely submitted in cassette D1. (TSD; 11/28/2018) TOB/TOB . 02 Pathologist provided ICD-10: D12.3, D12.6, K62.1 . 02 CPT . 619965, 303538, 958127, 617600 Specimen Comment: A courtesy copy of this report has been sent to Specimen Comment: [phone], . Specimen Comment: Report sent to and Performed at: [address], [place] [id number] MD Braulio Joshua MD Phone: [phone] Performed at: [address] [id number] MD Simin Fuentes MD Phone: [phone]
== END | disposition home or self-care (01) ==
LOC: GI 07:15
DX: D12.3 Benign neoplasm of transverse colon (principal); D12.4 Benign neoplasm of descending colon; D12.5 Benign neoplasm of sigmoid colon; K62.1 Rectal polyp; K57.30 Diverticulosis of large intestine without perforation or abscess without bleeding; K21.9 Gastro-esophageal reflux disease without esophagitis; I10 Essential (primary) hypertension; I25.10 Atherosclerotic heart disease of native coronary artery without angina pectoris; I25.2 Old myocardial infarction; I73.9 Peripheral vascular disease, unspecified; F41.9 Anxiety disorder, unspecified; F32.9 Major depressive disorder, single episode, unspecified; E78.5 Hyperlipidemia, unspecified; Z86.010 Personal history of colon polyps; Z98.890 Other specified postprocedural states; Z86.2 Personal history of diseases of the blood and blood-forming organs and certain disorders involving the immune mechanism; Z87.19 Personal history of other diseases of the digestive system; Z96.641 Presence of right artificial hip joint; Z79.891 Long term (current) use of opiate analgesic; Z90.711 Acquired absence of uterus with remaining cervical stump; Z98.41 Cataract extraction status, right eye; Z98.42 Cataract extraction status, left eye; Z87.891 Personal history of nicotine dependence; Z88.2 Allergy status to sulfonamides; Z88.8 Allergy status to other drugs, medicaments and biological substances; Z79.899 Other long term (current) drug therapy
CPT/HCPCS: 62110; 62900

== ENCOUNTER → 2018-12-02 | Outpatient (CLI) | payer OTHER, BC ==
[~2018-12-02] VITALS: Ht 152.4 cm; Wt 61.0 kg
--- NOTE | ~2018-12-02 | HPC ---
[facility] [place] [address] PAIN MANAGEMENT CONSULTATION Name: OLIVIA PARKINSON Room #: REG [facility]#: [id number] Admission: 12/02/18 ������������������ Attend Phys: Jose Sloitario MD Discharge: ������������������ Date of : 34 Report #: [id number] THIS REPORT FOR: //name// CC: Stef Solitario DATE OF SERVICE: 12/02/2018 Followup visit for chronic low back pain with radiculopathy. The patient is in the pain clinic today describing pain across her low back that radiates into her legs. She has previously been treated with an epidural injection receiving good relief. She would like to repeat the injection today. Her last injection was performed several months ago. She reports that after the injection, she is able to move more easily. The pain intensity drops dramatically. Today, pain score is 7-8/10. She describes it as radiating through the calves bilaterally, right and left, worse on the right. PQRS REVIEW IS COMPLETED: 1. She does have a history of osteoarthritis involving upper and lower extremities. 2. She is 5 feet 2 inches, 132 pounds, BMI is 24.1. 3. Blood pressure 144/62, heart rate 70, BMI 26.2. 4. Pain score today is 7-8/10. 5. She is a fall risk. She walks with unstable gait. She has multiple bruises. 6. Her bruises are due to Plavix, which she takes normally, but has been off in anticipation of an epidural injection today. Her last Plavix has taken 10 days ago. 7. She is on an opioid agreement and we provide medications for her under terms of written opioid agreement. 8. She has completed an opioid risk tool and is at low risk for addiction. 9. She denies use of tobacco, although she is a former smoker. She drinks alcohol occasionally with her in a social setting but reduced it. PHYSICAL EXAMINATION: VITAL SIGNS: As noted above. She is a very delightful 83-year-old pleasant, alert and oriented. She moves independently from sitting to standing position, but walks with antalgic unstable gait. HEART: Her chest is clear. She has some grade 3/6 systolic flow murmur. MUSCULOSKELETAL: She has tenderness across her low back, pain. Straight leg raising reproduces pain in the calf. She has bruising bilaterally throughout the lower extremities from her previous Plavix use. The bruises are tender. Sensation is normal. Muscle strength is judged to be 4/5 in all muscle groups. [address] [address] PAIN MANAGEMENT CONSULTATION Name: OLIVIA PARKINSON Room #: REG [facility]#: [id number] Admission: 12/02/18 ������������������ Attend Phys: Jose Solitario MD Discharge: ������������������ Date of : 34 Report #: [id number] IMPRESSION: 1. Chronic low back pain with radiculopathy. PROCEDURE: Lumbar epidural steroid injection L4-L5 under fluoroscopic guidance. After informed consent, she was taken to fluoroscopic suite, placed prone, skin prepped with ChloraPrep. Skin anesthetized over L4-L5. Using biplanar fluoroscopic views, I advanced the needle into the epidural space with loss of resistance. There was no blood or CSF aspirated. A 1 mL of Omnipaque injected. Good spread of dye observed in the epidural space followed by 3 mL of 0.5% lidocaine mixed with 60 mg of triamcinolone. She tolerated the procedure well and was observed for 45 minutes and discharged. Followup visit planned as needed. ��������������������������������������������� ���������������������������������������� By: ��������������������������������������������� 1340 [id number] Jose Solitario MD /nt
[2018-12-02 12:57] VITALS: BP 144/62
--- NOTE | 2018-12-02 13:15 | NUR ---
Pain Clinic Assessment: 1. History of Osteoarthritis: Left Lower Extremity Left Upper Extremity Right Lower Extremity Right Upper Extremity History of Rheumatoid Arthritis: Not Applicable 2. Height: 5 ft. 0 in. 152.4 cm. Weight: 134.4 lb. oz. 60.963 kg. Patient's BMI: 26.2 3. Vital Signs: BP: 144/62 Pulse: 70 Resp: 14 Temp: 02 Sat: 97 ECG Mon: 4. Pain Intensity: 7-8 5. Fall Risk: Dizziness: N Needs help standing or walking: N Fallen in the last 3 months: N Fall risk comments: 6. Patient on Blood Thinner: Clopidogrel Bisulf(Plavix 7. History of Hypertension: Y 8. Opioid Therapy greater than 6 weeks: Y Opiate Contract Signed: 07/13/16 9. Risk Assessment Tool Provided: LOW RISK 0/3 10. Functional Assessment Tool: 11. Recreational Drug Use: Never Drug Type: Tobacco Use: Former Smoker Tobacco Type: Amount or Packs/day: How Many Years: Alcohol Use: Yes Frequency: Quant:
== END | disposition home or self-care (01) ==
LOC: PAIN 11-29 08:18
DX: M54.16 Radiculopathy, lumbar region (principal); G89.29 Other chronic pain; M19.90 Unspecified osteoarthritis, unspecified site; I25.10 Atherosclerotic heart disease of native coronary artery without angina pectoris; I73.9 Peripheral vascular disease, unspecified; Z98.890 Other specified postprocedural states; Z88.2 Allergy status to sulfonamides; Z88.8 Allergy status to other drugs, medicaments and biological substances; Z87.891 Personal history of nicotine dependence; Z79.899 Other long term (current) drug therapy

== ENCOUNTER → 2018-12-16 | Outpatient (CLI) | payer OTHER, BC | LOC: EDSTATUS 09:22 → ULTRA 09:23 | DX: R10.9 Unspecified abdominal pain (principal) ==

== ENCOUNTER → 2019-04-03 | Outpatient (CLI) | payer OTHER, BC ==
[~2019-04-03] VITALS: Ht 157.5 cm; Wt 61.7 kg
[~2019-04-03] MED LIST changes: +CYMBALTA20 MG PO
[2019-04-03 10:20] VITALS: BP 129/66
--- NOTE | 2019-04-03 10:26 | NUR ---
Pain Clinic Assessment: 1. History of Osteoarthritis: Left Lower Extremity Left Upper Extremity Right Lower Extremity Right Upper Extremity History of Rheumatoid Arthritis: Not Applicable 2. Height: 5 ft. 2 in. 157.5 cm. Weight: 136.0 lb. oz. 61.689 kg. Patient's BMI: 24.9 3. Vital Signs: BP: 129/66 Pulse: 74 Resp: 16 Temp: 02 Sat: 100 ECG Mon: 4. Pain Intensity: 8 5. Fall Risk: Dizziness: N Needs help standing or walking: N Fallen in the last 3 months: Y Fall risk comments: 6. Patient on Blood Thinner: Clopidogrel Bisulf(Plavix 7. History of Hypertension: Y 8. Opioid Therapy greater than 6 weeks: Y Opiate Contract Signed: 07/13/16 9. Risk Assessment Tool Provided: LOW RISK 0 10. Functional Assessment Tool: 11. Recreational Drug Use: Never Drug Type: Tobacco Use: Former Smoker Tobacco Type: Amount or Packs/day: How Many Years: Alcohol Use: Yes Frequency: Quant:
--- NOTE | 2019-04-03 16:18 | HPC ---
[facility] [address] [place] [address] PAIN MANAGEMENT CONSULTATION Name: OLIVIA PARKINSON Room #: REG [facility] Cassandra#: [id number] Admission: 04/03/19 Attend Phys: Ashley Cody Discharge: Date of : 34 Report #: [id number] THIS REPORT FOR: //name// CC: Ashley Solitario MD DATE OF SERVICE: 04/03/2019 CHIEF COMPLAINT: Chronic low back pain with radiculopathy. HISTORY OF PRESENT ILLNESS: This is a very pleasant 83-year-old female who is here today with her . She reports her pain score of 8/10. She is reporting that her legs are having increasing burning and feeling very lethargic. She feels that at times it is difficult to walk. She currently takes her hydrocodone 2-3 times a day depending on her pain, but feels that her legs are causing more of her problem currently than her back. Her pain is increased with walking and bending. She is wondering if we have any options to help her with this increased leg burning and aching pain today. ALLERGIES: BACTRIM, ADHESIVE TAPE, AND TRAMADOL. CURRENT LIST OF MEDICATIONS: Hydrocodone 10/325 2-3 a day, Levsin, Zocor, MiraLax, stool softener, biotin, magnesium, Celexa, Lasix, amitriptyline, Protonix, metoprolol, nisoldipine, Premarin, and Plavix. PATIENT'S PQRS: 1. She has osteoarthritic changes in her upper and lower extremities. Denies any rheumatoid arthritis. 2. Height is 5 feet 2 inches, weight is 136, BMI is 24. 3. Vital signs 129/66, pulse is 74, respirations 16, oxygen sat is 100. Pain score is 8/10. 4. Fall risk. Denies dizziness, does not need help walking or standing, has fallen in the last 3 months. The patient is on Plavix as well as medicine for hypertension. Opioid therapy is greater than 6 weeks; therefore, an opiate signed contract is on the chart. Risk assessment tool is low. Functional assessment is 30/70. 5. Recreational drug use, she denies. She is a former smoker and occasionally drinks alcohol. According to the prescription monitoring system, the patient is filling appropriately for her medications in a timely fashion. She does safeguard her meds at all times. Her current morphine mEq is 20-30 MME per day. PHYSICAL EXAMINATION: [facility] [address] [place] [address] PAIN MANAGEMENT CONSULTATION Name: OLIVIA PARKINSON Room #: REG [facility]#: [id number] Admission: 04/03/19 Attend Phys: Ashley Cody Discharge: Date of : 34 Report #: [id number] GENERAL: This is alert and orientated 83-year-old female who appears her stated age, placing her current pain score at 8/10. HEENT: Normocephalic, atraumatic. Extraocular eye muscles are intact. Mucous membranes are moist. MUSCULOSKELETAL: She moves independently from sitting to standing position, but walks with an antalgic unsteady gait. She is slow in her movements and walking. Her muscle strength is judged to be 4/5 in all major muscle groups. She has tenderness across her low back pain. Straight leg raising produces pain in her calf. She has burning in her legs bilaterally. IMPRESSION: 1. Chronic low back pain with radiculopathy. 2. Hypertension. 3. Opioid-induced constipation. 4. Peripheral neuropathy. 5. High risk medications under terms of written opioid agreement. PLAN: 1. We discussed treatment options with the patient today. The patient is having increased burning in her legs, though the epidurals do help with pain control and was beneficial. The last one she had in November. Her legs are problematic today. She had taken Neurontin in the past, though had side effects. She reports that it made her feel excitable and like she was "jumping out of her skin. After discussion with Dr. Jose Solitario, we decided to trial Cymbalta for her peripheral neuropathy component as well as an antidepressant that she needs. We will stop her Celexa and start Cymbalta 20 mg once a day for a week. If she finds this beneficial in helping with her leg pain, we will keep her at that level. If not, she is instructed to take 2 tablets a day after that and call our office, if this is still not beneficial. The patient and spouse verbalized understanding. 2. We will refill her hydrocodone, enabling her to take up to 3 times a day of that . All of her medications [facility] 3 months of her medications. 3. The patient is seen in collaboration with Dr. Jose Solitario. The patient will follow up as needed, either by phone or appointment. <ELECTRONICALLY SIGNED> By: Ashley Cody 04/03/19 1618 1113 1241 Ashley Cody /rocco
== END ==
LOC: PAIN 06:51
DX: M54.16 Radiculopathy, lumbar region (principal); I10 Essential (primary) hypertension; K59.03 Drug induced constipation; T40.2X5A Adverse effect of other opioids, initial encounter; G62.9 Polyneuropathy, unspecified; Z79.891 Long term (current) use of opiate analgesic; Z79.899 Other long term (current) drug therapy; Y92.89 Other specified places as the place of occurrence of the external cause

== ENCOUNTER 2019-05-01 09:41 | Inpatient (IN) | payer OTHER, BC ==
[~2019-05-01] VITALS: Ht 157.5 cm; Wt 57.2 kg
[2019-05-01 09:42] VITALS: BP 128/87
--- NOTE | 2019-05-01 10:01 | EKG ---
[facility] [place] [address] ELECTROCARDIOGRAM REPORT Name: OLIVIA PARKINSON Room #: [facility]..#: [id number] Admission: Attend Phys: Discharge: Date of : 34 Report #: [id number] THIS REPORT FOR: //name// 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 : 1935 Requested By: Travis Hubbard Order Number: [id number] MD: Boo Mondragon Measurements Intervals [place] Rate: 79 P: 23 SC: 204 QRS: -7 QRSD: 102 T: -44 QT: 434 QTc: 498 Interpretive Statements Sinus rhythm Inferior infarct, recent Poor R wave progression Borderline prolonged QT interval Compared to ECG 06/24/2018 10:48:37 T-wave abnormality now present QT interval has lengthened Electronically Signed On 05-01-2019 10:01:06 THAI MASSEUR by Boo Mondragon [email or web address] <ELECTRONICALLY SIGNED> By: Boo Mondragon MD, [facility] 05/01/19 1001 7 7 Boo Mondragon MD, [facility] /EPI
[2019-05-01 10:06] LABS: HEMATOCRIT 22.5 % (37.0-47.0); MCH 40.8 pg (26.0-34.0)
[2019-05-01 10:08] LABS: MCHC 32.9 g/dL (28.0-37.0); MCV 124.1 fL (80.0-100.0); PLATELET COUNT 136 thou/uL (150-400); RBC 1.82 mil/uL (4.20-5.00); RDW 16.1 % (10.5-14.5)
[2019-05-01 10:15] LABS: WBC 1.2 thou/uL (4.0-11.0)
[2019-05-01 10:16] LABS: HEMOGLOBIN 7.4 gm/dL (12.0-15.0)
[2019-05-01 10:21] LABS: CALCIUM 9.1 mg/dL (8.5-10.1); CREATININE 1.1 mg/dL (0.6-1.0); POTASSIUM 4.4 mmol/L (3.5-5.1)
[2019-05-01 10:30] LABS: ALBUMIN 3.4 g/dL (3.4-5.0); TOTAL BILIRUBIN 0.5 mg/dL (<0.1-1.0); TOTAL PROTEIN 7.2 g/dL (6.4-8.2); TROPONIN-I 0.36 ng/mL (<0.06)
[2019-05-01 10:40] LABS: APTT 23.3 Seconds (24.5-32.8); INR 1.1; PROTIME 11.3 Seconds (9.3-11.4)
[2019-05-01 11:03] LABS: ABSOLUTE NEUTROPHILS 0.1 thou/uL (1.4-8.2); ANISOCYTOSIS 1+; ATYPICAL LYMPHS 3 %; MACROCYTES 2+; NUCLEATED RBCS 5 /100WBC
[2019-05-01 11:05] LABS: POLYCHROMASIA OCCASIONAL
[2019-05-01 12:57] LABS: % SATURATION 32 % (20-39); IRON 96 ug/dL (50-170); TIBC 302 ug/dL (250-450)
[2019-05-01 13:25] VITALS: BP 137/73
--- NOTE | 2019-05-01 13:34 | 2DMMODE ---
[facility] [place] [employer] [place] [address] 2 D/M-MODE ECHOCARDIOGRAM Name: OLIVIA PARKINSON Mojgan Room #: 170-1 ADM IN .R.#: [id number] Admission: 05/01/19 Attend Phys: Stef Toussaint MD Discharge: Date of : 34 Report #: [id number] THIS REPORT FOR: //name// APPROVED REPORT Study performed: 05/01/2019 12:28:28 EXAM: Comprehensive 2D, Doppler, and color-flow Echocardiogram Patient Location: ER beside Room #: 1 Status: routine BSA: 1.64 HR: 102 bpm BP: 125/64 mmHg Rhythm: Tachycardia Other Information Study Quality: Adequate Indications CAD SOB, elevated BNP, HLD 2D Dimensions RVDd: 43.35 mm IVSd: 11.95 (7-11mm) LVOT Diam: 15.20 (18-24mm) LVDd: 40.73 mm PWd: 11.36 (7-11mm) Ascending Ao: 27.93 (22-36mm) LVDs: 36.76 (25-40mm) Aortic Root: 31.71 mm IVC: 24.00 mm Volumes Left Atrial Volume (Systole) Single Plane 4CH: 69.86 mL Single Plane 2CH: 71.07 mL LA ESV Index: 47.00 mL/m2 Aortic Valve AoV Peak Niko.: 1.67 m/s AO Peak Gr.: 11.09 mmHg LVOT Max P.69 mmHg LVOT Max V: 0.65 m/s [place] Vmax: 0.71 cm2 AI Vmax: 3.58 m/s AI [place]: 4.37 m/s2 AI PHT: 237.67 ms [facility] [address] [place] [address] 2 D/M-MODE ECHOCARDIOGRAM Name: OLIVIA PARKINSON Room #: [address] [place] [address] IN [facility].#: [id number] Admission: 05/01/19 Attend Phys: Stef Toussaint MD Discharge: Date of : 34 Report #: [id number] Mitral Valve MV Decel. Time: 165.26 ms MV E Max Niko.: 1.27 m/s IVRT: 92.27 ms Pulmonary Valve PV Peak Niko.: 0.63 m/s PV Peak Gr.: 1.57 mmHg Tricuspid Valve TR Peak Niko.: 3.28 m/s RAP Estimate: 15.00 mmHg TR Peak Gr.: 43.16 mmHg PA Pressure: 58.00 mmHg Left Ventricle The left ventricle is normal size. There is severe hypokinesis in the inferior wall. Mild concentric left ventricular hypertrophy. Left ventricular ejection fraction is moderately decreased. LVEF is 35-40%. This study is not technically sufficient to allow evaluation of the LV diastolic function. Right Ventricle Right ventricle is mildly dilated. The right ventricular systolic function is normal. Atria Left atrium is moderately dilated. Right atrium is mildly dilated. Aortic Valve Aortic valve is mildly calcified. Mild to moderate aortic regurgitation. There is no aortic valvular stenosis. Mitral Valve Mitral valve leaflets are mildly thickened. Severe mitral regurgitation. No evidence of mitral valve stenosis. Tricuspid Valve The tricuspid valve is normal in structure. Moderate tricuspid regurgitation. PAP is estimated at 58 mmHg. Pulmonic Valve Pulmonic valve is not well visualized. Great Vessels The aortic root is normal in size. IVC is dilated and collapses <50% with inspiration. [facility] [address] [place] [address] 2 D/M-MODE ECHOCARDIOGRAM Name: OLIVIA PARKINSON Mojgan Room #: 170-1 ADM IN .R.#: [id number] Admission: 05/01/19 Attend Phys: Stef Toussaint MD Discharge: Date of : 34 Report #: [id number] Pericardium There is no pericardial effusion. <Conclusion> The left ventricle is normal size. LVEF is 35-40%. There is severe hypokinesis in the inferior wall. Right ventricle is mildly dilated. The right ventricular systolic function is normal. Left atrium is moderately dilated. Right atrium is mildly dilated. Aortic valve is mildly calcified. Mild to moderate aortic regurgitation. Mitral valve leaflets are mildly thickened. Severe mitral regurgitation. The tricuspid valve is normal in structure. Moderate tricuspid regurgitation. PAP is estimated at 58 mmHg. There is no pericardial effusion. <ELECTRONICALLY SIGNED> By: Nick Reynoso MD 05/01/19 1333 1333 1333 Nick Reynoso MD /INF
[2019-05-01 13:37] LABS: FOLIC ACID 30.5 ng/mL (8.6-58.9)
[2019-05-01 13:45] VITALS: BP 133/84
[2019-05-01 14:15] LABS: URINE BILIRUBIN NEGATIVE (Negative); URINE BLOOD NEGATIVE (Negative); URINE CLARITY CLEAR; URINE COLOR YELLOW; URINE GLUCOSE-RANDOM* NEGATIVE (Negative); URINE KETONES NEGATIVE (Negative); URINE LEUKOCYTES-REFLEX NEGATIVE (Negative); URINE NITRITE-REFLEX NEGATIVE (Negative); URINE PROTEIN (DIPSTICK) NEGATIVE (Negative); URINE SPECIFIC GRAVITY <= 1.005 (1.005-1.035); URINE UROBILINOGEN 0.2 E.U./dl (0.2-1.0)
[2019-05-01 17:02] VITALS: BP 125/74
[2019-05-01 19:11] LABS: OBSERVED RETIC COUNT 3.16 % (0.6-2.6)
[2019-05-01 20:30] VITALS: BP 130/78
[2019-05-02] VITALS (12 sets, daily range): BP systolic 122–137; BP diastolic 62–91
[2019-05-02 05:02] LABS: RDW 15.4 % (10.5-14.5)
[2019-05-02 05:04] LABS: HEMATOCRIT 21.8 % (37.0-47.0); HEMOGLOBIN 7.2 gm/dL (12.0-15.0); MCH 40.6 pg (26.0-34.0); MCHC 33.2 g/dL (28.0-37.0); MCV 122.1 fL (80.0-100.0); PLATELET COUNT 105 thou/uL (150-400); RBC 1.78 mil/uL (4.20-5.00)
[2019-05-02 05:23] LABS: CALCIUM 8.8 mg/dL (8.5-10.1); CREATININE 1.2 mg/dL (0.6-1.0); MAGNESIUM 1.7 mg/dL (1.8-2.4); POTASSIUM 3.9 mmol/L (3.5-5.1); TROPONIN-I 0.26 ng/mL (<0.06)
[2019-05-02 05:27] LABS: WBC 1.6 thou/uL (4.0-11.0)
--- NOTE | 2019-05-02 07:04 | HC ---
[facility] [place] [address] CONSULTATION Name: OLIVIA PARKINSON Room #: 204-P ADM IN M.R.#: [id number] Admission: 05/01/19 Attend Phys: Stef Toussaint MD Discharge: Date of : 33 Report #: [id number] THIS REPORT FOR: //name// CC: Dr. Zak Solitario MD REFERRING PHYSICIAN: Dr. Stef Toussaint REASON FOR CONSULTATION: Cytopenia. 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 In the ER, she was found to have hemoglobin of 7.4, last June it had been 9.9; white count of 1.2, last June it had been about 5.3; platelets 136,000, last March about 150,000. The same time, her UA was unremarkable. Her ferritin was 256, folate 30.5, vitamin B12 of 219, which is low. Note that it was low also in this facility about 7-8 years ago without replacement, iron of 96, TIBC 302, percent iron saturation 32%, total bilirubin 0.5. TSH 2.2, AST 123 elevated, ALT 76 elevated. On the differential also note that MCV was elevated at 124, back in June or so it had been 99.6. RDW of 16.1. Differential has an ANC of 0.1. Also, note that she has atypical lymphocytes at 3%. REVIEW OF SYSTEMS: The patient denies fevers or chills, new arm or leg swelling. Does have a bit of leg heaviness feeling lately. She has not had any blood in her urine. She relates she even had a colonoscopy about [address] Zak Bunn. Evidently, they found diverticulitis. She also sees Dr. Jose Solitario for pain and had recently received a new medication about a month ago for one week they cause a bit of stomach upset, is not currently on it. PAST MEDICAL HISTORY: Notable for coronary artery disease with bare metal stents in the past. Also, history of vascular abnormalities with peripheral arterial disease, status post extremity stents, also carotid artery disease. Also, hyperlipidemia, COPD, spinal stenosis. 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 No significant alcohol, no street drugs. No tobacco. FAMILY HISTORY: No one with blood disorders. She has a family member, I [facility] [address] [place] [address] CONSULTATION Name: OLIVIA PARKINSON Room #: 204-P [facility] IN M.R.#: [id number] Admission: 05/01/19 Attend Phys: Stef Toussaint MD Discharge: Date of : 34 Report #: [id number] believe, the daughter that is present. MEDICATIONS: At this time in the hospital currently include losartan 25 mg daily, nisoldipine 17 mg on hold, pantoprazole 40 daily, duloxetine 20 b.i.d., atorvastatin calcium 10 at bedtime, amitriptyline 10 at bedtime, metoprolol 100 at bedtime, clopidogrel 75 at bedtime but this will be put on hold, furosemide 40 b.i.d. IV, hydrocodone p.r.n., MiraLax 17 grams daily, nitroglycerin p.r.n., Zofran p.r.n. ALLERGIES: Not reported at this time, but I believe she has had trouble with a rash with BACTRIM, rapid heart rate with TRAMADOL, and rash with TRIMETHOPRIM also. PHYSICAL EXAMINATION: GENERAL: The patient appears her stated age. VITAL SIGNS: Height is 5 feet 2 inches, 157.5 cm, weight is 140.4 pounds or 63.7 kilograms. Blood pressure is 125/74, respirations 20, pulse 96, temperature 98.6. MOOD: She is pleasant and conversant. NEUROLOGIC: Moving extremities. Speech and thought pattern normal. HEENT: Oropharynx without injection, leukoplakia, erythroplakia or ulcerations. LUNGS: Appear to be mostly clear. HEART: Appears to be regular rate. Bases not clear to examine, but may be slightly diminished. LYMPHATICS: No enlarged lymph nodes in the supraclavicular, cervical, axillary or inguinal region. ABDOMEN: Soft, without masses. Slightly obese. EXTREMITIES: Without clubbing or cyanosis. Minimal to trace edema. ASSESSMENT AND PLAN: 1. Pancytopenia. Note that the patient has an MCV of 124 with normal total bilirubin suggesting this is not hemolysis. Also, B12 was low. We will arrange for a methylmalonic acid level drawn and begin B12. The patient does not really have any known neuropathy, though she has had spinal stenosis that may be hiding it. We will also tentatively plan for bone marrow biopsy and aspirate and we will have them to check with Cardiology to see if the aspirin and Plavix can be held and if the patient is not improved by Sunday may proceed with a bone marrow biopsy. Also awaiting peripheral smear review. 2. Neutropenia. Would suggest neutropenic precautions instead of reverse isolation. 3. Coronary artery disease. Meds per others. 4. Peripheral arterial disease. Meds per others. 5. Hypertension. Meds per others. [facility] [address] [place] [address] CONSULTATION Name: OLIVIA PARKINSON Mojgan Room #: 204-P ADM IN M.R.#: [id number] Admission: 05/01/19 Attend Phys: Stef Toussaint MD Discharge: Date of : 34 Report #: [id number] 6. History of hyperlipidemia, statins. 7. Chronic obstructive pulmonary disease, inhalers. We will follow with you. <ELECTRONICALLY SIGNED> By: Jose Gong MD 05/02/19 0704 [id number] Jose Gong MD /nt
[2019-05-02 09:08] LABS: HEMOGLOBIN 7.3 g/dL (11.1-15.9)
[2019-05-02 13:49] LABS: ABSOLUTE NEUTROPHILS 0.1 thou/uL (1.4-8.2); ATYPICAL LYMPHS 6 %
[2019-05-02 13:50] LABS: ANISOCYTOSIS 2+; NUCLEATED RBCS 1 /100WBC; OVALOCYTES FEW
[2019-05-02 13:51] LABS: MACROCYTES 2+
[2019-05-02 13:52] LABS: POLYCHROMASIA OCCASIONAL
[2019-05-03 04:13] LABS: CALCIUM 8.8 mg/dL (8.5-10.1); CREATININE 1.1 mg/dL (0.6-1.0); POTASSIUM 4.1 mmol/L (3.5-5.1)
[2019-05-03 04:30] VITALS: BP 128/62
[2019-05-03 07:45] VITALS: BP 121/61
[2019-05-03 11:50] VITALS: BP 106/89
[2019-05-03 13:12] LABS: ANISOCYTOSIS 2+; ATYPICAL LYMPHS 8 %; HYPOCHROMASIA 1+; MACROCYTES 1+; NUCLEATED RBCS 3 /100WBC; PLATELET COUNT 105 thou/uL (150-400); PLATELET ESTIMATE NORMAL
[2019-05-03 13:20] LABS: HEMATOCRIT 23.1 % (37.0-47.0); HEMOGLOBIN 7.6 gm/dL (12.0-15.0); MCH 41.3 pg (26.0-34.0); MCHC 32.8 g/dL (28.0-37.0); MCV 125.7 fL (80.0-100.0); RBC 1.83 mil/uL (4.20-5.00); RDW 16.9 % (10.5-14.5)
[2019-05-03 13:23] LABS: WBC 1.6 thou/uL (4.0-11.0)
[2019-05-03 15:40] VITALS: BP 111/54
[2019-05-03 20:53] VITALS: BP 122/54
[2019-05-04 04:39] LABS: HEMATOCRIT 21.3 % (37.0-47.0); HEMOGLOBIN 7.2 gm/dL (12.0-15.0); MCHC 33.6 g/dL (28.0-37.0); RBC 1.76 mil/uL (4.20-5.00)
[2019-05-04 04:43] LABS: MCH 40.6 pg (26.0-34.0); MCV 120.8 fL (80.0-100.0); RDW 16.1 % (10.5-14.5)
[2019-05-04 05:04] LABS: CALCIUM 8.4 mg/dL (8.5-10.1); POTASSIUM 3.2 mmol/L (3.5-5.1)
[2019-05-04 05:06] LABS: WBC 1.6 thou/uL (4.0-11.0)
[2019-05-04 05:38] VITALS: BP 123/59
[2019-05-04 07:40] VITALS: BP 110/50
[2019-05-04] MEDS ORDERED: COZAAR 25 MG TA25 MG PO (11:15)
[2019-05-04] MEDS ORDERED: TORSEMIDE20 MG PO (11:16)
--- NOTE | 2019-05-04 11:51 | EKG ---
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 : 1935 Requested By: Boo Mondragon Order Number: [id number] MD: Boo Mondragon Measurements Intervals [place] Rate: 78 P: 25 TN: 195 QRS: -19 QRSD: 92 T: -58 QT: 437 QTc: 498 Interpretive Statements Sinus rhythm Inferior infarct, age indeterminate Consider anterior infarct Baseline wander in lead(s) V5 Compared to ECG 05/01/2019 09:48:54 No significant change was found Electronically Signed On 05-04-2019 11:50:27 COUNTERSINKER by Boo Mondragon [email or web address] <ELECTRONICALLY SIGNED> By: Boo Mondragon MD, [facility] 05/04/19 1150 1114 1114 Boo Mondragon MD, [facility] /EPI
[2019-05-04 13:25] VITALS: BP 110/50
== END 2019-05-04 14:29 | disposition home or self-care (01) | DRG 292 ==
LOC: ER 09:41 → 2N 11:10 → EROBS 11:10 → 2N 11:10
PROVIDERS: Emergency Medicine; Internal Medicine; Internal Medicine Hematology & Oncology; Nurse Practitioner; Nurse Practitioner Adult Health; ADMIT Hospitalist
PROC: 07DR3ZX Extraction of Iliac Bone Marrow, Percutaneous Approach, Diagnostic (ICD-10-PCS; principal; 2018-05-02)
DX: I11.0 Hypertensive heart disease with heart failure (principal); D61.818 Other pancytopenia; J90 Pleural effusion, not elsewhere classified; I50.23 Acute on chronic systolic (congestive) heart failure; F41.9 Anxiety disorder, unspecified; Z96.643 Presence of artificial hip joint, bilateral; E78.5 Hyperlipidemia, unspecified; K21.9 Gastro-esophageal reflux disease without esophagitis; F32.9 Major depressive disorder, single episode, unspecified; R79.89 Other specified abnormal findings of blood chemistry; I25.10 Atherosclerotic heart disease of native coronary artery without angina pectoris; I73.9 Peripheral vascular disease, unspecified; D64.9 Anemia, unspecified; N19 Unspecified kidney failure; J44.9 Chronic obstructive pulmonary disease, unspecified; E78.00 Pure hypercholesterolemia, unspecified; I87.2 Venous insufficiency (chronic) (peripheral); M48.00 Spinal stenosis, site unspecified; N39.3 Stress incontinence (female) (male); G47.00 Insomnia, unspecified; Z96.642 Presence of left artificial hip joint; Z79.891 Long term (current) use of opiate analgesic; I25.2 Old myocardial infarction; Z95.820 Peripheral vascular angioplasty status with implants and grafts; Z90.710 Acquired absence of both cervix and uterus; Z95.5 Presence of coronary angioplasty implant and graft; Z98.42 Cataract extraction status, left eye; Z98.41 Cataract extraction status, right eye; Z90.89 Acquired absence of other organs; Z79.899 Other long term (current) drug therapy; Z88.2 Allergy status to sulfonamides; Z88.8 Allergy status to other drugs, medicaments and biological substances; Z87.891 Personal history of nicotine dependence; Z79.82 Long term (current) use of aspirin
CPT/HCPCS: 10081

== ENCOUNTER → 2019-06-03 | Outpatient (CLI) | payer OTHER, BC ==
[~2019-06-03] MED LIST changes: +COZAAR 25 MG TA25 MG PO; +TORSEMIDE20 MG PO
== END ==
LOC: HYPER 11:03
DX: S51.012A Laceration without foreign body of left elbow, initial encounter (principal); S61.512A Laceration without foreign body of left wrist, initial encounter; I11.0 Hypertensive heart disease with heart failure; I50.30 Unspecified diastolic (congestive) heart failure; C95.10 Chronic leukemia of unspecified cell type not having achieved remission; I73.9 Peripheral vascular disease, unspecified; L03.116 Cellulitis of left lower limb; L03.115 Cellulitis of right lower limb; K21.9 Gastro-esophageal reflux disease without esophagitis; G89.29 Other chronic pain; I25.10 Atherosclerotic heart disease of native coronary artery without angina pectoris; E78.5 Hyperlipidemia, unspecified; I25.2 Old myocardial infarction; M06.9 Rheumatoid arthritis, unspecified; F32.9 Major depressive disorder, single episode, unspecified; F41.9 Anxiety disorder, unspecified; Z86.718 Personal history of other venous thrombosis and embolism; Z87.891 Personal history of nicotine dependence; Z90.710 Acquired absence of both cervix and uterus; X58.XXXA Exposure to other specified factors, initial encounter; Y93.89 Activity, other specified; Y92.89 Other specified places as the place of occurrence of the external cause; Y99.8 Other external cause status

== ENCOUNTER → 2019-06-17 | Outpatient (CLI) | payer OTHER, BC | LOC: HYPER 14:14 | DX: L03.116 Cellulitis of left lower limb (principal); L03.115 Cellulitis of right lower limb; S51.801A Unspecified open wound of right forearm, initial encounter; C95.10 Chronic leukemia of unspecified cell type not having achieved remission; E78.5 Hyperlipidemia, unspecified; I11.0 Hypertensive heart disease with heart failure; I50.30 Unspecified diastolic (congestive) heart failure; I73.9 Peripheral vascular disease, unspecified; I25.10 Atherosclerotic heart disease of native coronary artery without angina pectoris; I25.2 Old myocardial infarction; M06.9 Rheumatoid arthritis, unspecified; F41.9 Anxiety disorder, unspecified; Z87.891 Personal history of nicotine dependence; Z86.718 Personal history of other venous thrombosis and embolism; Z90.710 Acquired absence of both cervix and uterus; X58.XXXA Exposure to other specified factors, initial encounter; Y93.89 Activity, other specified; Y92.89 Other specified places as the place of occurrence of the external cause; Y99.8 Other external cause status ==

== ENCOUNTER → 2019-07-02 | Outpatient (CLI) | payer OTHER, BC ==
[~2019-07-02] MED LIST changes: +ACYCLOVIR 800800 MG PO; +ALLOPURINOL 10100 M3 PO; +COMPAZINE10 M2 PO; +DIFLUCAN200 MG PO; +LEVAQUIN 750 M750 MG PO; +POTASSIUM20 PO; +SENOKOT-S1 TA2 PO; +XANAX 0.5 MG0.5 MG PO
== END ==
LOC: HYPER 15:05
DX: L89.153 Pressure ulcer of sacral region, stage 3 (principal); S01.401A Unspecified open wound of right cheek and temporomandibular area, initial encounter; L03.116 Cellulitis of left lower limb; L03.115 Cellulitis of right lower limb; I73.9 Peripheral vascular disease, unspecified; I11.0 Hypertensive heart disease with heart failure; I50.30 Unspecified diastolic (congestive) heart failure; I25.10 Atherosclerotic heart disease of native coronary artery without angina pectoris; E78.5 Hyperlipidemia, unspecified; I25.2 Old myocardial infarction; M06.9 Rheumatoid arthritis, unspecified; C92.10 Chronic myeloid leukemia, BCR/ABL-positive, not having achieved remission; F41.9 Anxiety disorder, unspecified; Z90.710 Acquired absence of both cervix and uterus; Z87.891 Personal history of nicotine dependence; Z86.718 Personal history of other venous thrombosis and embolism; X58.XXXA Exposure to other specified factors, initial encounter; Y93.89 Activity, other specified; Y92.89 Other specified places as the place of occurrence of the external cause; Y99.8 Other external cause status

== ENCOUNTER 2019-07-06 14:51 | Inpatient (IN) | payer OTHER, BC ==
[~2019-07-06] VITALS: Ht 157.5 cm; Wt 57.2 kg
--- NOTE | ~2019-07-06 | EMS ---
[address] [address] EMS Patient Care Report Name: OLIVIA PARKINSON Room #: 213-P ADM IN M.R.#: [id number] Admission: 07/06/19 Attend Phys: Ana Maria Reddy MD Discharge: Date of : 34 Report #: [id number] THIS REPORT FOR: //name// Report Transmitted: 07/07/2019 07:44 EMS Care Summary [facility] MED-ACT Incident [id number] @ 07/06/2019 14:08 Incident Location [address] [place] [address] Patient OLIVIA PARKINSON Female, 84 Years 1935 Patient Address [address] [place] [address] Patient History Cancer, Unspecified,Hypertension (HTN),Cardiac - Stent, Patient Allergies Tramadol, Patient Medications Hydrocodone, Amitriptyline, Acyclovir, Allopurinol, Ondansetron, Alprazolam, Dulcolax, Metoprolol, Chief Complaint dehydration Disposition Transported No Lights/[place] Dispatch Reason Sick Person Transported To [facility] Narrative EMS was dispatched for a patient having generalized weakness. Upon EMS arrival the patient was sitting in her chair alert, conscious and breathing. Family advised the patient had been having cancer treatments and was really weak and [facility] [address] [place] [address] EMS Patient Care Report Name: OLIVIA PARKINSON Room #: 213-P ADM IN [facility].#: [id number] Admission: 07/06/19 Attend Phys: Ana Maria Reddy MD Discharge: Date of : 34 Report #: [id number] dehydrated today. The patient's daughter in law advised the patient needed to go to the hospital and needed fluids and labs drawn. The patient advised she was really weak and wanted to go to the hospital. EMS took a set of vitals and helped her onto a stair chair to be moved outside. The patient was placed onto the cot and loaded into the ambulance. During transport EMS monitored the patient's vital signs and reassessed the patient with possible pain in her bottom noted. The patient was transported to [facility] for further evaluation. Initial Vitals @14:29P: 98,SpO2: 92,NC Suspected: false @14:36P: 109,SpO2: 79, @14:15P: 109,R: 18,BP: 96/58,Pain: 0/10,GCS: 15,SpO2: 93,Revised Trauma: 12,NC Suspected: false @14:45P: 102,R: 18,BP: 91/46,Pain: 0/10,GCS: 15,SpO2: 95,Revised Trauma: 12,NC Suspected: false @14:26P: 111,R: 18,BP: 94/56,Pain: 0/10,GCS: 15,SpO2: 98,Revised Trauma: 12,NC Suspected: false Assessments @14:14MENTAL:Person Oriented,Time Oriented,Place Oriented,Event Oriented,SKIN:HEENT:Head/Face: No Abnormalities,LUNG SOUNDS:General: No Abnormalities,ABDOMEN:General: No Abnormalities,PELVIS//GI:No Abnormalities,EXTREMITIES:Left Arm: No Abnormalities,Right Arm: No Abnormalities,Left Leg: No Abnormalities,Right Leg: No Abnormalities,PULSE:NEURO:No Abnormalities, Impression Dehydration Procedures @14:14ALS AssessmentResponse: UnchangedSucceeded Timeline 14:08,Call Received 14:08,Psap Call 14:08,Dispatched 14:09,En Route 14:13,On Scene 14:14,At Patient 14:14,ALS Assessment,Response: UnchangedSucceeded, 14:15,BP: 96/58 M,PULSE: 109,RR: 18 R,SPO2: 93 Ox,ETCO2: ,BG: ,PAIN: 0,GCS: 15, 14:26,BP: 94/56 M,PULSE: 111,RR: 18 R,SPO2: 98 Ox,ETCO2: ,BG: ,PAIN: 0,GCS: 15, 14:29,BP: / M,PULSE: 98,RR: R,SPO2: 92 Ox,ETCO2: ,BG: ,PAIN: ,GCS: , 14:30,Depart Scene 14:36,BP: / M,PULSE: 109,RR: R,SPO2: 79 Ox,ETCO2: ,BG: ,PAIN: ,GCS: , [facility] [address] [place] [address] EMS Patient Care Report Name: OLIVIA PARKINSON Mojgan Room #: 213-P [facility] IN M.R.#: [id number] Admission: 07/06/19 Attend Phys: Ana Maria Reddy MD Discharge: Date of : 34 Report #: [id number] 14:45,BP: 91/46 M,PULSE: 102,RR: 18 R,SPO2: 95 Ox,ETCO2: ,BG: ,PAIN: 0,GCS: 15, 14:46,At Destination 15:08,Call Closed Disclaimer v1.1 Copyright 2020 [employer] This EMS Care Summary contains data elements from the applicable legal record (which may be displayed differently). It is designed to provide pertinent information for the following purposes: continuity of care, clinical quality, and state data reporting. The complete legal record is available to ED staff and administrators of the receiving hospital in [employer] Patient Tracker. All data is provided "as is."
[2019-07-06 14:51] VITALS: BP 81/53
[~2019-07-06 14:51] MED LIST changes: -ACYCLOVIR 800800 MG PO; -ALLOPURINOL 10100 M3 PO; -COMPAZINE10 M2 PO; -DIFLUCAN200 MG PO; -LEVAQUIN 750 M750 MG PO; -POTASSIUM20 PO; -SENOKOT-S1 TA2 PO; -XANAX 0.5 MG0.5 MG PO
[2019-07-06 15:39] LABS: WBC 2.1 thou/uL (4.0-11.0)
[2019-07-06 15:41] LABS: HEMATOCRIT 22.3 % (37.0-47.0); HEMOGLOBIN 7.2 gm/dL (12.0-15.0); MCH 32.7 pg (26.0-34.0); MCHC 32.4 g/dL (28.0-37.0); MCV 100.8 fL (80.0-100.0); RBC 2.21 mil/uL (4.20-5.00); RDW 23.7 % (10.5-14.5)
[2019-07-06 15:43] LABS: CALCIUM 9.6 mg/dL (8.5-10.1); CREATININE 1.3 mg/dL (0.6-1.0); POTASSIUM 4.5 mmol/L (3.5-5.1)
[2019-07-06 15:49] LABS: ALBUMIN 2.2 g/dL (3.4-5.0); DIRECT BILIRUBIN 0.5 mg/dL (<0.1-0.2); TOTAL PROTEIN 6.7 g/dL (6.4-8.2)
[2019-07-06 16:02] LABS: APTT 39.4 Seconds (24.5-32.8); INR 1.3; PROTIME 13.2 Seconds (9.3-11.4)
[2019-07-06 16:14] LABS: URINE BILIRUBIN NEGATIVE (Negative); URINE BLOOD NEGATIVE (Negative); URINE CLARITY CLEAR; URINE COLOR YELLOW; URINE GLUCOSE-RANDOM* NEGATIVE (Negative); URINE KETONES NEGATIVE (Negative); URINE LEUKOCYTES-REFLEX NEGATIVE (Negative); URINE NITRITE-REFLEX NEGATIVE (Negative); URINE PROTEIN (DIPSTICK) NEGATIVE (Negative); URINE UROBILINOGEN 0.2 E.U./dl (0.2-1.0)
[2019-07-06] MEDS ORDERED: TORSEMIDE20 MG PO (16:21)
[2019-07-06] MEDS ORDERED: SENOKOT-S1 TA2 PO (16:43)
[2019-07-06 16:44] LABS: ABSOLUTE NEUTROPHILS 0.4 thou/uL (1.4-8.2)
[2019-07-06 16:47] LABS: PLATELET COUNT 50 thou/uL (150-400)
[2019-07-06 16:48] LABS: ANISOCYTOSIS 2+; MACROCYTES 1+; POIKILOCYTOSIS 1+
[2019-07-06 16:49] LABS: NUCLEATED RBCS 3 /100WBC
[2019-07-06 16:51] LABS: ATYPICAL LYMPHS 2 %
[2019-07-06 20:30] VITALS: BP 80/54
[2019-07-06 20:51] VITALS: BP 81/51; BP 82/56; BP 84/56; BP 94/54
[2019-07-07] MEDS ORDERED: XANAX 0.5 MG0.5 MG PO (00:13)
[2019-07-07] MEDS ORDERED: COMPAZINE10 M2 PO (00:13)
[2019-07-07] MEDS ORDERED: ACYCLOVIR 800800 MG PO (00:14)
[2019-07-07] MEDS ORDERED: POTASSIUM20 PO (00:15)
[2019-07-07] MEDS ORDERED: ALLOPURINOL 10100 M3 PO (00:16)
[2019-07-07] MEDS ORDERED: DIFLUCAN200 MG PO (00:17)
[2019-07-07] MEDS ORDERED: LEVAQUIN 750 M750 MG PO (00:18)
[2019-07-07 00:20] VITALS: BP 94/54
--- NOTE | 2019-07-07 00:44 | NUR ---
PT ADMITTED FROM THE ED WITH WEAKNESS.ARRIVED TO UNIT VIA CART ACCOMPANIED BY HER DAGHTER.PT IS A/OX4,VERY WEAK.HYPOTENSIVE WITH SBP IN 80S.PT TACHYCARDIAC ON MONITOR WITH HRS IN 12O AT THIS TIME.PT AFEBRILE.RA W/O REP DISTRESS.ORIENTED TO RM AND UNIT ACTIVITIES.TRANSFUSED 1 UNIT OF PRBS,TOLEREATE W/O ADVERSE REACTIONS.GIVEN 500ML OF BOLUS BP AT THIS TIME SBP IN 90S.DENIES PAIN OR ANY DISTRESS JUST BEING TIRED.HAS WOOUNDS TO PADMA LES PER DAUGHTER BUT REQUESTED NOT TO OPEN UP THEM TONIGHT TO GIVE PATIENT TIME TO REST AND HAVE BLOOD TRANSFUSION AND HYDRATION AND MAYBE HAVE SOME STRENGTH IN THE MORNING.OPEN WOUND NOTED TO SACRAL AREA,BARRIER CREAM PROVIDED.HAS ALSO A SKIN TEAR TO LEFT ARM NEAR ELBOW.FALL RISK.DR STANTON NOTIFIED OF THE TACHYCARDIA ISSUES,ORDERED TOPROL.NO OTHER CONCERNS AT THIS TIME.WILL CONT TO MONITOR PER POC.
[2019-07-07 04:10] VITALS: BP 86/57
[2019-07-07 05:31] LABS: HEMOGLOBIN 8.5 gm/dL (12.0-15.0); WBC 2.7 thou/uL (4.0-11.0)
[2019-07-07 05:33] LABS: HEMATOCRIT 25.4 % (37.0-47.0); MCHC 33.3 g/dL (28.0-37.0); MCV 98.9 fL (80.0-100.0); RBC 2.56 mil/uL (4.20-5.00); RDW 21.3 % (10.5-14.5)
[2019-07-07 05:45] LABS: CALCIUM 8.4 mg/dL (8.5-10.1); CREATININE 1.4 mg/dL (0.6-1.0)
[2019-07-07 07:00] VITALS: BP 87/59
[2019-07-07 08:30] VITALS: BP 87/59
--- NOTE | 2019-07-07 08:59 | EKG ---
[facility] [place] [address] ELECTROCARDIOGRAM REPORT Name: OLIVIA PARKINSON Room #: 213-P ADM IN M.R.#: [id number] Admission: 07/06/19 Attend Phys: Ana Maria Reddy MD Discharge: Date of : 34 Report #: [id number] THIS REPORT FOR: cc: Stef Lutz MD, Kirk D. MD Couchonnal, Luis F. MD ~ THIS REPORT FOR: //name// [facility] ED Test Date: 2019-07-06 Test Time: 15:39:57 Pat Name: OLIVIA PARKINSON Department: Room: 213 Gender: F Acute Care Nursing Assistant: SANDRITA : 1935 Requested By: Cynthia Hollins Order Number: [id number] MD: Laureano Bajwa Measurements Intervals [place] Rate: 118 P: -28 CA: 128 QRS: 83 QRSD: 95 T: 249 QT: 327 QTc: 459 Interpretive Statements Sinus tachycardia Atrial premature complex Borderline right axis deviation Low voltage, extremity leads Consider anterior infarct Compared to ECG 05/04/2019 11:14:14 Atrial premature complex(es) now present Low QRS voltage now present Sinus rhythm no longer present Myocardial infarct finding still present Electronically Signed On 07-07-2019 8:57:49 CDT by Laureano Bajwa [email or web address] <ELECTRONICALLY SIGNED> By: Laureano Bajwa MD 07/07/19 0857 [id number] 1539 Laureano Bajwa MD /EPI
[2019-07-07 11:00] VITALS: BP 97/60
--- NOTE | 2019-07-07 12:59 | NUR ---
PT CARE ASSUMED APPROXIMATELY 0700. PT ASSESSMENTS CHARTED. PT MEDICATION CHARTED. PT UP TO TOILET WITH DAUGHTER. LACTIC ACID 6.2 INFORMATION GIVEN TO . MAXIMILIAN LOPEZ CALLED AT 1227. UNABLE TO RESUSCITATE PT. FAMILY AT BEDSIDE PRIOR TO INCIDENT.
== END 2019-07-07 16:00 | DRG 871 ==
LOC: ER 14:51 → EROBS 17:50 → 2N 17:50
PROVIDERS: Emergency Medicine; ADMIT Hospitalist
PROC: 30233N1 Transfusion of Nonautologous Red Blood Cells into Peripheral Vein, Percutaneous Approach (ICD-10-PCS; principal; 2019-07-06)
PROC: 5A12012 Performance of Cardiac Output, Single, Manual (ICD-10-PCS; 2019-07-07)
DX: A41.9 Sepsis, unspecified organism (principal); D61.810 Antineoplastic chemotherapy induced pancytopenia; G92 Toxic encephalopathy; E87.2 Acidosis; E87.1 Hypo-osmolality and hyponatremia; N17.9 Acute kidney failure, unspecified; C92.00 Acute myeloblastic leukemia, not having achieved remission; I50.22 Chronic systolic (congestive) heart failure; I42.9 Cardiomyopathy, unspecified; D61.818 Other pancytopenia; R57.1 Hypovolemic shock; Z96.643 Presence of artificial hip joint, bilateral; I73.9 Peripheral vascular disease, unspecified; E78.5 Hyperlipidemia, unspecified; F32.9 Major depressive disorder, single episode, unspecified; F41.9 Anxiety disorder, unspecified; M19.90 Unspecified osteoarthritis, unspecified site; I25.10 Atherosclerotic heart disease of native coronary artery without angina pectoris; E78.00 Pure hypercholesterolemia, unspecified; I87.8 Other specified disorders of veins; J44.9 Chronic obstructive pulmonary disease, unspecified; I46.9 Cardiac arrest, cause unspecified; I11.0 Hypertensive heart disease with heart failure; Z90.711 Acquired absence of uterus with remaining cervical stump; Z85.3 Personal history of malignant neoplasm of breast; I25.2 Old myocardial infarction; Z95.5 Presence of coronary angioplasty implant and graft; Z95.820 Peripheral vascular angioplasty status with implants and grafts; Z98.41 Cataract extraction status, right eye; Z79.899 Other long term (current) drug therapy; Z88.8 Allergy status to other drugs, medicaments and biological substances; Z88.2 Allergy status to sulfonamides; Z91.048 Other nonmedicinal substance allergy status; Z87.891 Personal history of nicotine dependence
CPT/HCPCS: 10081